=== PATIENT | female | born 1975 | race Caucasian/White ===

== ENCOUNTER 2020-05-20 11:06 | Outpatient (REF) | payer OTHER, SELFPAY ==
[2020-05-20 12:41] LABS: COVID-19 Test Negative (Negative)
== END 2020-05-20 11:07 | disposition home or self-care (01) ==
LOC: HO.LAB 11:06
PROVIDERS: Visit Provider Internal Medicine
DX: Z20.828 Contact with and (suspected) exposure to other viral communicable diseases (principal)
CPT/HCPCS: 87635

== ENCOUNTER 2020-06-05 10:26 | Outpatient (REF) | payer OTHER, SELFPAY ==
[2020-06-05 11:01] LABS: COVID-19 Test Negative (Negative)
== END 2020-06-05 10:27 | disposition home or self-care (01) ==
LOC: HO.LAB 10:26
PROVIDERS: Visit Provider Internal Medicine
DX: Z20.828 Contact with and (suspected) exposure to other viral communicable diseases (principal)
CPT/HCPCS: 87635

== ENCOUNTER 2020-11-15 12:35 | Outpatient (REF) | payer OTHER, SELFPAY ==
--- NOTE | ~2020-11-15 | MM_ITS ---
EXAMINATION: MM SCREENING DIGITAL BREAST TOMOSYNTHESIS, BILATERAL CLINICAL INFORMATION: Screening. Asymptomatic. The lifetime risk of breast cancer based on the Tyrer-Cuzick Model is 10%. COMPARISON: Mammography: 09/02/2019, 06/24/2018, 04/05/2017 TECHNIQUE: Digital breast tomosynthesis is performed in both the craniocaudal and mediolateral oblique views along with computer-aided detection (CAD). Synthesized 2D images are generated from the tomosynthesis. Additional right CC view is provided. FINDINGS: There are scattered areas of fibroglandular density (ACR BI-RADS breast composition Category b). Breast tissue composition borders on heterogeneously dense in the bilateral anterior breasts. Parenchymal pattern is similar to prior studies. No developing density. No significant changes. There are no significant masses, abnormal calcifications, or other abnormalities. MM/MM tomosynthesis screening BI IMPRESSION: No mammographic evidence of malignancy. ASSESSMENT: BI-RADS 1: Negative RECOMMENDATION: Routine annual mammography screening. This patient's information was entered into a reminder system with a target due date for their next mammogram.
== END 2020-11-15 12:36 | disposition home or self-care (01) ==
LOC: HO.MAMMO 12:35
PROVIDERS: PCP Nurse Practitioner Family; Visit Provider Nurse Practitioner Family
DX: Z12.31 Encounter for screening mammogram for malignant neoplasm of breast (principal)
CPT/HCPCS: 77063; 77067

== ENCOUNTER 2020-11-25 09:30 | Outpatient (REF) | payer OTHER, SELFPAY ==
[2020-11-25 10:25] LABS: MANUAL DIFF FLAG NO
[2020-11-25 10:55] LABS: Basophils Percent Auto 0.7 % (0-2); Eosinophils Absolute Auto 0.1 X10*3/uL (0.0-0.4); Eosinophils Percent Auto 1.1 % (0-4); Hematocrit 35.9 % (37-47); Hemoglobin 11.8 g/dl (12.0-16.0); Imm Gran Abs Auto 0.01 X10*3/uL (0.00-0.03); Imm Gran Pct Auto 0.2 % (0.0-0.4); Lymphocytes Absolute Auto 1.5 X10*3/uL (1.2-4.9); Lymphocytes Percent Auto 32.5 % (20-40); Mean Corpuscular HGB Conc 32.9 g/dl (31.0-35.0); Mean Corpuscular Volume 94.2 fL (80-98); Mean Platelet Volume 10.7 fL (9.4-12.3); Monocytes Absolute Auto 0.3 X10*3/uL (0.1-1.2); Neutrophils Absolute Auto 2.7 X10*3/uL (2.0-8.3); Neutrophils Percent Auto 58.5 % (45-73); Platelet Count 218 X10*3/uL (160-400); Red Blood Count 3.81 X10*6/uL (4.20-5.50); Red Cell Distribution Width 13.5 % (11.0-16.0); White Blood Count 4.6 X10*3/uL (4.8-10.8)
[2020-11-25 11:10] LABS: Alanine Aminotransferase 19 U/L (0-31); Albumin Level 4.3 g/dL (3.5-5.0); Alkaline Phosphatase 53 U/L (39-117); Anion Gap 15 (12-20); Aspartate Amino Transferase 29 U/L (5-31); Bilirubin Total 1.1 mg/dL (0.0-1.0); Blood Urea Nitrogen 14 mg/dL (9-16); C Reactive Protein 0.07 mg/dL (< or = 0.50); Calcium 9.2 mg/dL (8.4-10.2); Carbon Dioxide 24 mmol/L (22-29); Chloride 105 mmol/L (96-108); Cholesterol 175 mg/dL; Estimated Glomerular Filt Rate > 60; Glucose Fasting 86 mg/dL (60-99); HDL Cholesterol 92 mg/dL; LDL Cholesterol Calculated 76 mg/dl; Potassium 4.4 mmol/L (3.3-5.1); Sodium 140 mmol/L (135-145); Total Protein 6.8 g/dL (6.5-8.0); Triglycerides 35 mg/dL
[2020-11-25 11:14] LABS: Vitamin D 25-OH Total 35.8 ng/mL (>30)
[2020-11-25 11:33] LABS: Folate 17.5 ng/mL (> or = 4.0); Vitamin B12 199 pg/mL (200-900)
[2020-11-25 12:15] LABS: Erythrocyte Sedimentation Rate 2 MM/HR (0-20)
[2020-11-30 12:02] LABS: Parietal Cell Antibody <=20.0 Unit (<=20.0)
[2020-12-02 19:06] LABS: Intrinsic Factor Antibodies Negative (Negative)
== END 2020-11-25 09:31 | disposition home or self-care (01) ==
LOC: HO.10HDL 09:30
PROVIDERS: PCP Nurse Practitioner Family; Visit Provider Nurse Practitioner Family
DX: Z00.00 Encounter for general adult medical examination without abnormal findings (principal); Z78.9 Other specified health status
CPT/HCPCS: 36415; 80053; 80061; 82306; 82607; 82746; 83516; 85025; 85652; 86140; 86340

== ENCOUNTER → 2021-01-27 12:55 | Outpatient (BNVA) | payer OTHER, SELFPAY | PROVIDERS: PCP Nurse Practitioner Family; Referring Provider Nurse Practitioner Family; Visit Provider Advanced Practice Midwife ==

== ENCOUNTER → 2021-04-07 13:28 | Outpatient (BNVA) | payer OTHER, SELFPAY | PROVIDERS: PCP Nurse Practitioner Family; Visit Provider Physician Assistant ==

== ENCOUNTER 2021-04-22 10:31 | Outpatient (REF) | payer OTHER, SELFPAY ==
[2021-04-22 10:50] LABS: MANUAL DIFF FLAG NO
[2021-04-22 10:55] LABS: Basophils Percent Auto 0.4 % (0-2); Eosinophils Absolute Auto 0.1 X10*3/uL (0.0-0.4); Eosinophils Percent Auto 1.4 % (0-4); Hematocrit 36.6 % (37-47); Hemoglobin 12.3 g/dl (12.0-16.0); Imm Gran Abs Auto 0.01 X10*3/uL (0.00-0.03); Imm Gran Pct Auto 0.2 % (0.0-0.4); Immature Retic Fraction 4.8 % (3.0-15.9); Lymphocytes Absolute Auto 1.5 X10*3/uL (1.2-4.9); Mean Corpuscular HGB Conc 33.6 g/dl (31.0-35.0); Mean Corpuscular Hemoglobin 31.5 pg (27.0-33.0); Mean Corpuscular Volume 93.8 fL (80-98); Mean Platelet Volume 10.3 fL (9.4-12.3); Monocytes Absolute Auto 0.4 X10*3/uL (0.1-1.2); Monocytes Percent Auto 7.7 % (2-11); Neutrophils Percent Auto 60.3 % (45-73); Platelet Count 212 X10*3/uL (160-400); Retic HGB Equivalent 35.4 pg (30.0-35.0); Reticulocytes Absolute 0.037 X10*6/uL (0.026-0.095); White Blood Count 4.9 X10*3/uL (4.8-10.8)
[2021-04-22 11:31] LABS: Ferritin 29 ng/mL (10-250)
[2021-04-22 11:34] LABS: Iron 219 mcg/dL (30-160); Percent Iron Saturation 65 % (15-50); Total Iron Binding Capacity 339 mcg/dL (228-428); Unsaturated Iron Binding 120 ug/dL
[2021-04-22 11:41] LABS: Vitamin B12 537 pg/mL (200-900)
[2021-04-23 13:56] LABS: Transferrin 274 mg/dL (188-341)
[2021-04-25 18:51] LABS: Homocysteine 6.8 umol/L (<10.4)
[2021-04-26 00:42] LABS: Intrinsic Factor Antibodies Negative (Negative)
[2021-04-26 12:31] LABS: Methylmalonic Acid 125 nmol/L (87-318)
[2021-04-27 08:32] LABS: Parietal Cell Antibody <=20.0 Unit (<=20.0)
== END 2021-04-22 10:32 | disposition home or self-care (01) ==
LOC: HO.10HDL 10:31
PROVIDERS: Visit Provider Nurse Practitioner Family
DX: D64.9 Anemia, unspecified (principal); Z78.9 Other specified health status
CPT/HCPCS: 36415; 82607; 82728; 83090; 83516; 83540; 83921; 84466; 85025; 85045; 86340

== ENCOUNTER 2021-06-13 07:25 | Day surgery (SDC) | payer OTHER, SELFPAY ==
[2021-06-06 13:53] VITALS: BMI 22.7
--- NOTE | 2021-06-09 14:40 | P.CONAN_ITS ---
Documented by User: Fransisca Fofana NP 06/09/21 14:40 HPI - Anesthesia Eval Consult details Narrative: 46yo F for Colonoscopy PMFSH Active Problems Active Problems: All Active Problems (Updated 04/07/21 @ 15:19 by Griselda Kraus PA-C) Encounter for screening colonoscopy (Acute) Encounter for annual routine gynecological examination (Acute) Anemia (Acute) Vegan diet (Acute) Physical exam (Acute) Past Medical History Medical History (Updated 06/13/21 @ 07:39 by Guerita Santiago RN) No pertinent past medical history Family History Family History Father High cholesterol Mesothelioma CVD (cardiovascular disease) Mother High cholesterol HTN (hypertension) Macular degeneration History of heart attack Ovarian cancer CVD (cardiovascular disease) Diabetes mellitus Sister No problems noted. Brother No problems noted. Brother No problems noted. Maternal Grandmother Ovarian cancer Maternal Grandfather Cancer of prostate Paternal Grandmother Cancer Paternal Grandfather No problems noted. Paternal Uncle Cancer of pancreas Surgical History Surgical History (Updated 06/13/21 @ 07:39 by Guerita Santiago RN) History of umbilical hernia repair Hx of dilation and curettage Social History Social History Household Members: Spouse and Children Household Members Other:: and two children Alcohol intake: current Alcohol intake frequency: holidays/special occasions only Patient Tobacco Use Status: Former Tobacco user Advance Directives Information Provided: Yes (informational brochure mailed) Advance Directives on File: No Current occupational status: employed Current occupation: [employer] Patient Experience Gender identity: Female Meds Allergies Allergy/AdvReac Type Severity Reaction Status Date / Time oxycodone [From Tylox] Allergy Unknown severe Verified 06/13/21 07:39 vomiting Home Medications Medication Instructions Recorded Confirmed Last Taken Type multivitamin 1 tab PO DAILY 10/06/20 06/06/21 Unknown History Exam Exam Date and Time: June 09, 2021 1440 Height,Weight and Vital Signs: Height 5 ft 2 in Weight 56.416 kg Assessment and Plan Assessment Anesthesia Assessment: Chart Reviewed Documented by User: Gloria Chaidez MD 06/13/21 08:20 [facility] Past Medical History Medical History (Updated 06/13/21 @ 07:39 by Guerita Santiago RN) No pertinent past medical history Family History Family History Father High cholesterol Mesothelioma CVD (cardiovascular disease) Mother High cholesterol HTN (hypertension) Macular degeneration History of heart attack Ovarian cancer CVD (cardiovascular disease) Diabetes mellitus Sister No problems noted. Brother No problems noted. Brother No problems noted. Maternal Grandmother Ovarian cancer Maternal Grandfather Cancer of prostate Paternal Grandmother Cancer Paternal Grandfather No problems noted. Paternal Uncle Cancer of pancreas Family history of problems with anesthesia: No Surgical History Surgical History (Updated 06/13/21 @ 07:39 by Guerita Santiago RN) History of umbilical hernia repair Hx of dilation and curettage History of Problems with Anesthesia: No Social History Social History Household Members: Spouse and Children Household Members Other:: and two children Alcohol intake: current Alcohol intake frequency: holidays/special occasions only Patient Tobacco Use Status: Former Tobacco user Advance Directives Information Provided: Yes (informational brochure mailed) Advance Directives on File: No Current occupational status: employed Current occupation: [employer] Patient Experience Gender identity: Female Meds Allergies Allergy/AdvReac Type Severity Reaction Status Date / Time oxycodone [From Tylox] Allergy Unknown severe Verified 06/13/21 07:39 vomiting Home Medications Medication Instructions Recorded Confirmed Last Taken Type multivitamin 1 tab PO DAILY 10/06/20 06/06/21 Unknown History Exam Airway Mallampati Class: I TM Dist: >3cm Neck ROM: Full Heart: rrr Lungs: cta Assessment and Plan Assessment Anesthesia Assessment: Anesthesia Plan Discussed and Chart Reviewed Final Anesthetic Review Family History of Problems with Anesthesia: No History of Problems with Anesthesia: No NPO: Yes ASA Class: I Final Preanesthetic Review: No Changes in Pt Med Stat, Meds/Allgs Chart Reviewed and Consent Obtained/Reviewed Patient Risk: Intermediate Procedure Risk: Intermediate Anesthetic Plan Anesthetic Plan: GA Disposition: Standard PACU
[2021-06-13 07:44] VITALS: BP 113/63; PULSE 74; RESP 16; TEMP 37.4; O2SAT 100
[2021-06-13 07:44] LABS: UPreg QC Valid YES; Urine Pregnancy NEGATIVE (NEGATIVE)
--- NOTE | 2021-06-13 07:56 | MHC.SHP ---
Pre-Procedural Eval Section A Date of Service: 06/13/21 The patient is an INPATIENT: No The History & Physical has been completed within 30 days and I have reviewed it.: No Section B Chief Complaint: screening Details of Present Illness: Colon Cancer screening Relevant Family History (Specify if Yes): Yes Relevant Social History: Tobacco Use (Former smoker) Present Medications: see Short Stay Collaborative assessment Medical History: Significant History (anemia) History of Previous Operations: Relevant previous surgery/procedure and date(s) (History of umbilical hernia repair) Allergies: Allergies Allergy/AdvReac Type Severity Reaction Status Date / Time oxycodone [From Tylox] Allergy Unknown severe Verified 06/13/21 07:39 vomiting Review of Systems Sugical H&P ROS: Negative: Constitution, Cardiovascular, Respiratory and Gastrointestinal Exam Surgical H&P Exam: Normal: Heart, Normal: Lungs, Normal: Extremities and Normal: Abdomen Plan Diagnosis/Plan: Unchanged I have reviewed the history and physical and performed a pertinent physical examination on my patient. No changes have occurred unless specified.
--- NOTE | 2021-06-13 07:59 | P.OP_ITS ---
Operative Note Operative Note Date of Service: 06/13/21 Narrative: Pre-op diagnosis:?Colon Cancer screening, family history of colon polyps (Dad in his 50's) Post-op diagnosis:?other (Diverticulosis, hemorrhoids) Procedure:? COLONOSCOPY TILL CECUM Consent: Indications for the procedure and potential complications of bleeding, perforation, reaction to medications and missed diagnosis were discussed with the patient and informed consent was obtained. Instrument: Olympus PCF H 190 L variable stiffness pediatric colonoscope Monitoring: Vital signs and clinical assessment, intermittent blood pressure monitoring, continuous EKG monitoring, Pulse oximetry and Carbon Dioxide monitoring were done throughout the procedure. Colon withdrawl time was 15 minutes. Procedure: The patient was placed in the left lateral decubitis position and pre-procedure medications were administered. After a digital rectal examination of the ano-rectum, the video colonoscope was inserted into the rectum and advanced through the colon to the cecum. The colonoscope was slowly withdrawn in a retrograde panoramic fashion and the colon mucosa was carefully examined including a retroflexed view of the rectum. Findings and interventions are described below. Procedure Difficulty: Without difficulty Findings: Terminal Ileum: Not evaluated Cecum:? Normal Ascending Colon:? Normal Transverse Colon:? Normal Descending Colon:? Normal Sigmoid Colon:? Moderate diverticulosis Rectum:? Normal Ano-rectum:? Moderate internal hemorrhoids and perianal skin tags Colon preparation: Excellent ? Impression and Post Procedure Diagnosis: Colonoscopy Findings: No polyps were detcted Moderate diverticulosis seen in the sigmoid colon Moderate hemorrhoids on retroflexed exam. Plan: Repeat Colonoscopy in 5 years due to family hx of colon polyps. Above findings were reviewed with the patient and diverticulosis handout was given in the discharge area Surgeon:?Andrew Murrell MD Anesthesia:?MAC (Sarah Patiño CRNA) Was an Signs And Displays Sales Representative used for this Procedure?:?No Signs And Displays Sales Representative:?Glenn Welch Estimated blood loss (mL):?0 Pathology:?none sent Condition:?stable Disposition:?PACU
[2021-06-13] MEDS: Lactated Ringers 1,000 ML 100 ML IVCONT (08:02)
[2021-06-13 09:10] VITALS: BP 119/64; PULSE 60; RESP 16; TEMP 36.7; O2SAT 100
[2021-06-13 09:25] VITALS: BP 103/57; PULSE 74; RESP 18; TEMP 36.7; O2SAT 100
== END 2021-06-13 09:59 | disposition home or self-care (01) ==
PROVIDERS: Nurse Practitioner; PCP Nurse Practitioner Family; Visit Provider Internal Medicine Gastroenterology
PROC: 0DJD8ZZ Inspection of Lower Intestinal Tract, Via Natural or Artificial Opening Endoscopic (ICD-10-PCS; CPT 45378; principal; 2021-06-13 08:30)
DX: Z12.11 Encounter for screening for malignant neoplasm of colon (principal); Z83.71 Family history of colonic polyps; K57.30 Diverticulosis of large intestine without perforation or abscess without bleeding; K64.8 Other hemorrhoids; K64.4 Residual hemorrhoidal skin tags; Z88.8 Allergy status to other drugs, medicaments and biological substances; Z87.891 Personal history of nicotine dependence
CPT/HCPCS: 45378; 81025

== ENCOUNTER 2021-08-26 13:00 | Outpatient (RCR) | payer OTHER, SELFPAY ==
--- NOTE | 2021-08-22 16:54 | MHC.PT.EP ---
[facility] [place] Office [place] Office [place] Office [address] Sammy Paez [address] [phone] F: [phone] F: [phone] F: [phone] F: [phone] Physical Therapy Plan of Care Date of Evaluation: Date of Surgery: Diagnosis: R THORACIC AND CERVICAL PARASPINAL SPASMS Assessment: Pt IS 46 YO RHD F REFERRED TO PT THROUGH (Elvira SIDDIQUI) WITH R THORACIC AND CERV PARASPINAL MM SPASMS. 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 REPORTS NO SPECIFIC INJURY OR TRAUMA BUT THAT INCIDENTS OF UPPER BACK PAIN ARE BECOMING CHRONIC. PAIN IN UPPER BACK/SCAPULA AREA CAN LEAD TO MIGRAINES AND LIMITED CERV ROM. THIS BOUT STARTED AROUND 08/06/21 WITHOUT PROVOCATION. HAD TO TAKE A FEW DAYS OFF WORK. SAW WC AND MEDS PRESCRIBED WITH RELIEF. HAS HAD PT IN PAST FOR LB BUT NEVER FOR NECK/UPPER BACK. PRESENTS WITH UPPER BODY WEAKNESS AND TTP THORACIC PARASPINALS,SCAP MMS AND UTS. SHOULD BENEFIT FROM PT TO ADDRESS THESE ISSUES Frequency and Duration: The patient will be seen 2X/WK X 4 WKS Short Term Goals: 1. INCREASED POSTURE AWARENESS AND AWARENESS JOB SITE SET UP 2. 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 DECREASED UPPER BACK PAIN AT LEAST 50% WITH ADLS 2. R SHLDER ABD STRENGTH AT LEAST 4+/5 3. IMPROVED NPDI (20/50 AT SOC) Treatment Plan: Modalities to reduce pain, spasms and effusion. Manual therapy to restore motion and function. Therapeutic exercise to improve strength and flexibility. Neuromuscular re-education for posture and balance. Therapeutic activities to return to functional activities of daily living. Electronically signed by: LYNDA FARLEY PT Please sign and return to therapist. Thank you for your referral.
--- NOTE | 2021-09-30 13:48 | MHC.PT.DC ---
[facility] [place] Office [place] Office [place] Office [address] [place] [address] Dr Sammy Paez [address] [phone] F: [phone] F: [phone] F: [phone] F: [phone] Physical Therapy Discharge Report Diagnosis: R THORACIC AND CERVICAL PARASPINAL SPASMS Date of Surgery: Date of Evaluation: 08/22/21 Date of Discharge: 09/30/21 Treatments to Date: 2 Cancellations to Date: No Shows to Date: Discharge Status: Patient Elected to Stop Discharge Summary: Pt SEEN FOR INIT EVAL AND [address] WORK AND INST IN HOME PROGRAM. Pt THEN HAD TO CANCEL HER LAST 2 SCHEDULED APPTS (COVID). WHEN SPOKE WITH Pt RE CONT/DC Pt SHE FELT SHE WAS READY FOR DC WITH ABILITY TO CONTINUE WITH HOME PROGRAM Electronically signed by: LYNDA FARLEY PT Please sign and return to therapist. Thank you for your referral.
== END 2021-09-30 13:49 | disposition home or self-care (01) ==
LOC: HO.PT 13:00
PROVIDERS: Visit Provider Physician Assistant Medical
DX: M62.830 Muscle spasm of back (principal); M62.838 Other muscle spasm
CPT/HCPCS: 97110; 97140; 97161; 97535

== ENCOUNTER 2021-10-17 08:36 | Outpatient (REF) | payer OTHER, SELFPAY ==
[2021-10-17 10:40] LABS: MANUAL DIFF FLAG NO
[2021-10-17 10:45] LABS: Basophils Percent Auto 0.7 % (0-2); Eosinophils Absolute Auto 0.1 X10*3/uL (0.0-0.4); Eosinophils Percent Auto 2.2 % (0-4); Hematocrit 33.9 % (37.0-47.0); Hemoglobin 11.4 g/dl (12.0-16.0); Imm Gran Abs Auto 0.01 X10*3/uL (0.00-0.03); Imm Gran Pct Auto 0.2 % (0.0-0.4); Lymphocytes Absolute Auto 1.3 X10*3/uL (1.2-4.9); Lymphocytes Percent Auto 32.3 % (20-40); Mean Corpuscular HGB Conc 33.6 g/dl (31.0-35.0); Mean Corpuscular Hemoglobin 31.3 pg (27.0-33.0); Mean Corpuscular Volume 93.1 fL (80.0-98.0); Monocytes Absolute Auto 0.3 X10*3/uL (0.1-1.2); Monocytes Percent Auto 7.4 % (2-11); Neutrophils Absolute Auto 2.3 x10*3/uL (2.0-8.3); Neutrophils Percent Auto 57.2 % (45-73); Platelet Count 219 X10*3/uL (160-400); Red Blood Count 3.64 X10*6/uL (4.20-5.50); Red Cell Distribution Width 13.4 % (11.0-16.0); White Blood Count 4.1 X10*3/uL (4.8-10.8)
[2021-10-17 11:05] LABS: Alanine Aminotransferase 14 U/L (0-31); Albumin Level 4.1 g/dL (3.5-5.0); Alkaline Phosphatase 47 U/L (39-117); Anion Gap 12 (12-20); Aspartate Amino Transferase 18 U/L (5-31); Bilirubin Total 1.1 mg/dL (0.0-1.0); Blood Urea Nitrogen 19 mg/dL (9-16); C Reactive Protein 0.06 mg/dL (< or = 0.50); Calcium 8.7 mg/dL (8.4-10.2); Carbon Dioxide 25 mmol/L (22-29); Chloride 107 mmol/L (96-108); Cholesterol 164 mg/dL; Estimated Glomerular Filt Rate > 60; Glucose Fasting 114 mg/dL (60-99); HDL Cholesterol 73 mg/dL; LDL Cholesterol Calculated 83 mg/dl; Potassium 3.7 mmol/L (3.3-5.1); Sodium 140 mmol/L (135-145); Total Protein 6.4 g/dL (6.5-8.0); Triglycerides 43 mg/dL
[2021-10-17 11:26] LABS: Ferritin 13 ng/mL (10-250); TSH reflex Free T4 1.01 uIU/mL (0.32-4.0); Vitamin D 25-OH Total 31.4 ng/mL (>30)
[2021-10-17 11:41] LABS: Folate > 20.0 ng/mL (> or = 4.0); Vitamin B12 790 pg/mL (200-900)
[2021-10-17 11:43] LABS: Erythrocyte Sedimentation Rate 4 MM/HR (0-20)
[2021-10-18 04:14] LABS: HBS Num1 3.72 mIU/mL (0-7.99); HBc Num1 0.11 S/CO (0.00-0.79); Hepatitis B Core Antibody Nonreactive (Nonreactive); ~HepC Num1 0.08 S/CO (0.00-0.79); ~Hepatitis B Surface Antibody NONREACTIVE (Nonreactive); ~Hepatitis C Antibody Nonreactive (Nonreactive)
[2021-10-18 04:18] LABS: HBsAGNum1 0.19 S/CO (0.00-0.99); Hepatitis B Surface Antigen Negative (Negative)
[2021-10-18 18:56] LABS: Mumps Virus IgG Antibody >300.00 AU/mL; Rubeola IgG (Measles) >300.00 AU/mL
[2021-10-19 04:15] LABS: Hepatitis A Antibody IgM 0.18 Index (0-0.79); ~Hepatitis A Antibody IgM Nonreactive (Nonreactive)
[2021-10-19 18:51] LABS: TS Negative Control Passed; TS Panel A 1; TS Panel B 0; TS Positive Control Passed; TSpotTB Negative (Negative)
[2021-10-20 21:56] LABS: Intrinsic Factor Antibodies Negative (Negative)
[2021-10-24 14:36] LABS: Parietal Cell Antibody <=20.0 Unit (<=20.0)
== END 2021-10-17 08:37 | disposition home or self-care (01) ==
LOC: HO.10HDL 08:36
PROVIDERS: Visit Provider Nurse Practitioner Family
DX: Z00.00 Encounter for general adult medical examination without abnormal findings (principal); D64.9 Anemia, unspecified; Z78.9 Other specified health status; Z11.1 Encounter for screening for respiratory tuberculosis; Z28.3 Underimmunization status
CPT/HCPCS: 36415; 80053; 80061; 82306; 82607; 82728; 82746; 83516; 84443; 85025; 85652; 86140; 86340; 86481; 86704; 86706; 86709; 86735; 86762; 86765; 86787; 86803; 87340

== ENCOUNTER 2021-11-13 | Outpatient (REF) | payer OTHER, SELFPAY ==
[2021-11-16 08:35] LABS: FIT Int Ctl YES; FIT1 NEGATIVE (NEGATIVE); FIT2 NEGATIVE (NEGATIVE)
== END 2021-11-13 00:01 | disposition home or self-care (01) ==
LOC: HO.LNP
PROVIDERS: Visit Provider Nurse Practitioner Family
DX: D64.9 Anemia, unspecified (principal)
CPT/HCPCS: 82274

== ENCOUNTER 2021-11-15 15:33 | Outpatient (REF) | payer OTHER, SELFPAY | END 2021-11-15 15:34 | disposition home or self-care (01) | LOC: HO.LNP 15:33 | PROVIDERS: Visit Provider Nurse Practitioner Family | DX: Z13.89 Encounter for screening for other disorder (principal) ==

== ENCOUNTER 2022-01-19 14:50 | Outpatient (REF) | payer BC, SELFPAY ==
--- NOTE | ~2022-01-19 | MM_ITS ---
EXAMINATION: MM SCREENING DIGITAL BREAST TOMOSYNTHESIS, BILATERAL CLINICAL INFORMATION: Screening. Asymptomatic. The lifetime risk of breast cancer based on the Tyrer-Cuzick Model is 10%. COMPARISON: Mammography: 11/15/2020, 09/02/2019, 06/24/2018, 04/05/2017 TECHNIQUE: Digital breast tomosynthesis is performed in both the craniocaudal and mediolateral oblique views along with computer-aided detection (CAD). Synthesized 2D images are generated from the tomosynthesis. FINDINGS: There are scattered areas of fibroglandular density (ACR BI-RADS breast composition Category b). Parenchymal pattern is similar to prior studies. There are scattered bilateral stable parenchymal asymmetries without developing density or interval significant mass or architectural abnormality. Breast tissue composition borders on heterogeneously dense. No abnormal calcifications. The axilla are unremarkable. MM/MM tomosynthesis screening BI IMPRESSION: No significant changes from prior studies. ASSESSMENT: BI-RADS 2: Benign RECOMMENDATION: Routine annual mammography screening. This patient's information was entered into a reminder system with a target due date for their next mammogram.
== END 2022-01-19 14:51 | disposition home or self-care (01) ==
LOC: HO.MAMMO 14:50
PROVIDERS: Visit Provider Nurse Practitioner Family
DX: Z12.31 Encounter for screening mammogram for malignant neoplasm of breast (principal)
CPT/HCPCS: 77063; 77067

== ENCOUNTER → 2022-05-22 09:59 | Outpatient (RCR) | payer OTHER, SELFPAY ==
[2020-06-14 09:22] LABS: COVID-19 Test Negative (Negative)
== END | disposition home or self-care (01) ==
LOC: HO.EMPCOV 06-14 08:56
PROVIDERS: Visit Provider Internal Medicine
DX: Z20.828 Contact with and (suspected) exposure to other viral communicable diseases (principal)
CPT/HCPCS: 87635; C9803

== ENCOUNTER 2023-02-12 10:20 | Outpatient (REF) | payer BC, SELFPAY ==
--- NOTE | ~2023-02-12 | MM_ITS ---
EXAMINATION: MM SCREENING DIGITAL BREAST TOMOSYNTHESIS, BILATERAL CLINICAL INFORMATION: Screening. Asymptomatic. The lifetime risk of breast cancer based on the Tyrer-Cuzick Model is 8.7%. COMPARISON: Mammography: This study is compared with prior exams dating back to 2018. TECHNIQUE: Digital breast tomosynthesis is performed in both the craniocaudal and mediolateral oblique views along with computer-aided detection (CAD). Synthesized 2D images are generated from the tomosynthesis. FINDINGS: There are scattered areas of fibroglandular density (ACR BI-RADS breast composition Category b). There are no significant masses, abnormal calcifications, or other abnormalities. MM/MM tomosynthesis screening BI IMPRESSION: No mammographic evidence of malignancy. ASSESSMENT: BI-RADS BI-RADS 1 - Negative RECOMMENDATION: Routine annual mammography screening. 1 year F/U This examination should not preclude the clinical evaluation of a suspicious palpable abnormality. This patient's information was entered into a reminder system with a target due date for their next mammogram.
== END 2023-02-12 10:21 | disposition home or self-care (01) ==
LOC: HO.MAMMO 10:20
PROVIDERS: Visit Provider Nurse Practitioner Family
DX: Z12.31 Encounter for screening mammogram for malignant neoplasm of breast (principal)
CPT/HCPCS: 77063; 77067

== ENCOUNTER → 2023-02-12 10:30 | Outpatient (BNV) | payer BC, SELFPAY | PROVIDERS: Visit Provider Radiology Diagnostic Radiology | DX: Z12.31 Encounter for screening mammogram for malignant neoplasm of breast (principal) | CPT/HCPCS: 77063; 77067 ==

== ENCOUNTER 2023-09-05 14:29 | Outpatient (AMB) | payer BC, SELFPAY ==
[2023-09-05 15:05] VITALS: BP 110/76; PULSE 56; O2SAT 100; BMI 24.4
--- NOTE | 2023-09-05 15:05 | MHC.PC.OV ---
Vital Signs 09/05/23 15:05 Height 5 ft 2 in Weight 133 lb 8 oz BMI 24.4 BP 110/76 Blood Pressure Location Lt brachial Position Sitting Pulse 56 Pulse Source Pulse Oximeter Pulse Oximetry (%) 100 Oxygen Delivery Method Room Air Intake Visit Reasons: physical exam Intake Note: Pt is here for her Annual PE Last Pap 4 months ago pt had her Mammo last year Is last menstrual period known: Yes Last menstrual period: 08/07/23 Allergies oxycodone [From Tylox] Allergy (Unknown, Verified 09/05/23 15:08) severe vomiting Medication List - Last Reconciled 09/05/23 by NOHELIA Gonzalez multivitamin 1 tab PO DAILY Tobacco use date assessed: 09/05/23 Dental Screening Dental Screen Date: 09/05/23 Did you have a dental visit in the last 12 months?: Yes Did you have a dental problem in the last 6 months where you did not have access to dental care?: No Was dental information given to patient?: Patient has dentist HPI physical exam HPI Details Pt is here for a PE. Will order labs. Colon screen is up to date. Mammo is up to date. 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 Pt reports a red skin lesion to her upper chest that she has had for 3 weeks. Will refer to derm. [facility] Medical History No pertinent past medical history Surgical History Hx of dilation and curettage History of umbilical hernia repair Family History Father High cholesterol Mesothelioma CVD (cardiovascular disease) Mother High cholesterol HTN (hypertension) Macular degeneration History of heart attack CVD (cardiovascular disease) Diabetes mellitus Sister No problems noted. Brother No problems noted. Brother No problems noted. Maternal Grandmother Ovarian cancer Maternal Grandfather Cancer of prostate Paternal Grandmother Cancer Paternal Grandfather No problems noted. Paternal Uncle Cancer of pancreas Social History Household Members: Spouse and Children Household Members Other:: and two children Housing: House Alcohol intake: current Alcohol intake frequency: a few times a week Patient Tobacco Use Status: Never used Tobacco e-Cigarette/Vaping Use: Never Used Second Hand Smoke Exposure: No Current occupational status: employed Current occupation: [employer] Current occupational exposures/hazards: No Sexual orientation: Straight/Heterosexual Gender identity: Female Cognitive needs: No Hearing needs: No Vision needs: No Female Reproductive History Menstrual Age of Menarche: 12 Date of last menstrual period: 08/07/23 Questionnaire PHQ-9 Over the last 2 weeks, how often have you been bothered by any of the following problems? 1. Little interest or pleasure in doing things: not at all 2. Feeling down, depressed, or hopeless: not at all 3. Trouble falling or staying asleep, or sleeping too much: not at all 4. Feeling tired or having little energy: not at all 5. Poor appetite or overeating: not at all 6. Feeling bad about yourself - or that you are a failure or have let yourself or your family down: not at all 7. Trouble concentrating on things, such as reading the newspaper or watching television: not at all 8. Moving or speaking so slowly that other people could have noticed. Or the opposite - being so fidgety or restless that you have been moving around a lot more than usual: not at all 9. Thoughts that you would be better off or of hurting yourself in some way: not at all Total score: 0 Depression Screening Interpretation: Negative Depression Screening Done: Yes 18467 - PHQ-9 Billing: Yes Source: Developed by Drs. Yeyo Andrade, Emily Arnett, Severo Castro and colleagues, with an educational paul from [employer]. Thrive Questionnaire Date Thrive assessed: 09/05/23 I am a: Patient What is your living situation today?: I have a steady place to live Within the past 12 months, did the food you bought not last and you didn't have the money to get more?: Never true Within the past 12 months, did you worry whether your food would run out before you got money to buy more?: Never true Do you have trouble paying for medicines?: No Do you have trouble getting transportation to medical appointments?: No Do you have trouble paying your heating and electricity bill?: No Do you have trouble taking care of your child, family member or friend?: No Do you have trouble with day-to-day activities such as bathing, preparing meals, shopping, managing finances, etc.?: No Are you currently unemployed and looking for a job?: No Are you interested in more education?: No Currently or been in a relationship where the following occur: no concerns reported THRIVE Score: 0 AUDIT C Alcohol Use Questionnaire (AUDIT-C) 1. How often do you have a drink containing alcohol?: 2-4 times a month 2. How many drinks containing alcohol do you have on a typical day when you are drinking?: 1 or 2 3. How often do you have six or more drinks on one occasion?: Never Total Score: 2 Score Reviewed/Action Taken: Yes JAC-7 AMB Questionnaire JAC-7 Date JAC - 7 assessed: 09/05/23 Feeling nervous, anxious, or on edge: 0 = Not at all Not being able to stop or control worryin = Not at all Worrying too much about different things: 0 = Not at all Trouble relaxin = Not at all Being so restless that it is hard to sit still: 0 = Not at all Becoming easily annoyed or irritable: 0 = Not at all Feeling afraid as if something awful might happen: 0 = Not at all Total JAC-7 score (0-4 normal; 5-9 mild; 10-14 moderate; 15-21 severe): 0 Source: Developed by Drs. Yeyo Andrade, Emily Arnett, Severo Castro and colleagues, with an educational paul from [employer]. JAC-7 Assessment Billing JAC-7 Assessment Tool: JAC-7 Assessment 05367 Review of Systems Const Denies chills and Denies fever(s) Eyes Denies blurry vision ENT Denies vertigo, Denies dizziness and Denies sore throat Card Denies chest pain at rest, Denies chest pain with activity, Denies diaphoresis, Denies dyspnea and Denies dyspnea on exertion Resp Denies cough, Denies dyspnea, Denies dyspnea on exertion and Denies wheezing GI Denies abdominal pain, Denies melena, Denies hematochezia, Denies constipation, Denies diarrhea and Denies loose stools Denies hematuria Musc Denies numbness and Denies tingling Skin/Breast Denies lesions Neuro Denies vertigo, Denies dizziness, Denies numbness and Denies tingling Psych Denies anxiety, Denies depression, Denies homicidal ideation, Denies suicidal ideation and Denies other (substance abuse) Aller/Immun Denies wheezing Physical exam (Primary Care) Vital Signs: Last Vital Signs Pulse 56 09/05/23 15:05 BP 110/76 09/05/23 15:05 Pulse Ox 100 09/05/23 15:05 Oxygen Delivery Method Room Air 09/05/23 15:05 BMI result Body Mass Index 24.4 Tobacco/Smoking Status: Tobacco use Status Tobacco use date assessed 09/05/23 09/05/23 15:10 Patient Tobacco Use Status Never used Tobacco 09/05/23 15:10 e-Cigarette/Vaping Use Never Used 09/05/23 15:10 PHQ-9: PHQ-9 Score PHQ-9: Total score 0 09/05/23 15:34 Depression Screening Interpretation: Negative Thrive Assessment: Date of Thrive Assessment Date Thrive assessed 09/05/23 09/05/23 15:14 Currently or been in a relationship where the following occur: no concerns reported Const General: cooperative Nutritional Appearance: well nourished Orientation/consciousness: patient oriented x3 HENMT Head: Yes normal to inspection, Yes normocephalic and Yes atraumatic Ears: TM's normal bilaterally Eyes General: appearance normal, both eyes and all related structures Alignment and Position: alignment normal and position normal Neck Neck: Yes normal visual inspection and Yes no lymphadenopathy Thyroid: Thyroid normal Chest Chest palpation & inspection: normal inspection of the chest Resp Effort & Inspection: normal respiratory effort Auscultation: clear to auscultation bilaterally Cardio Rate: regular rate Rhythm: regular rhythm Heart sounds: S1 normal heart sound present, S2 normal heart sound present and no murmurs GI Palpation (GI): Soft to palpation and nontender Auscultation: normal bowel sounds Skin Other: red, slightly raises, shiny lesion to upper chest, no tenderness with touch, no surrounding lesions Rashes: no rashes Neuro General: patient oriented x3, moves all extremities, no focal motor deficits and deep tendon reflexes 2+ bilaterally Romberg Test: Negative Psych Appearance: grossly normal Mental Status: mental status grossly normal Speech and movement: Normal speech and movement present Affect: normal affect Attitude: cooperative Thought process: Normal thought process present Thought content: Normal thought content present Insight: Good insight present (Psych) Judgement: Good judgement present (Psych) Assessment and Plan Assessment & Plan (1) Physical exam: Code(s): Z00.00 - Encounter for general adult medical examination without abnormal findings Plan: Labs ordered (2) Vitamin D deficiency: Code(s): E55.9 - Vitamin D deficiency, unspecified Plan: Labs ordered (3) Skin lesion: Code(s): L98.9 - Disorder of the skin and subcutaneous tissue, unspecified Plan: Referred to derm Plan The patient agreed to the use of a medical device sales representative for this encounter. Scribed for JIE Moore-BC by Dotty Louis medical device sales representative, on 09/05/2023 at 15:20 EST. Orders: Orders Comprehensive [place]. Panel Fast Today Z00.00 - Encounter for general adult medical examination without abnormal findings UA CC w/rflx Micro + Cult Today Z00.00 - Encounter for general adult medical examination without abnormal findings Vitamin D 25-OH Total Today E55.9 - Vitamin D deficiency, unspecified Complete Blood Count Auto Diff Today Z00.00 - Encounter for general adult medical examination without abnormal findings TSH reflex Free T4 Today Z00.00 - Encounter for general adult medical examination without abnormal findings Lipid Panel Today Z00.00 - Encounter for general adult medical examination without abnormal findings Referrals Dermatology Referral L98.9 - Disorder of the skin and subcutaneous tissue, unspecified Coding Level of Care Code Est Pt Prev Care 40-64y(63359) Diagnoses Physical exam Z00.00 Vitamin D deficiency E55.9 Skin lesion L98.9 Additional Codes JAC-7 Assessment Billing - JAC-7 Assessment Tool: JAC-7 Assessment [id number] ([id number])
== END 2023-09-05 15:36 | disposition home or self-care (01) ==
PROVIDERS: Visit Provider Nurse Practitioner Family
DX: Z00.00 Encounter for general adult medical examination without abnormal findings (principal); E55.9 Vitamin D deficiency, unspecified; L98.9 Disorder of the skin and subcutaneous tissue, unspecified
CPT/HCPCS: 99396

== ENCOUNTER 2023-10-18 08:43 | Outpatient (REF) | payer BC, SELFPAY ==
[2023-10-18 10:56] LABS: MANUAL DIFF FLAG NO
[2023-10-18 11:01] LABS: Appearance Urine Turbid; Basophils Percent Auto 0.5 % (0-2); Color Urine Yellow; Eosinophils Absolute Auto 0.1 X10*3/uL (0.0-0.4); Eosinophils Percent Auto 1.6 % (0-4); Glucose Urine UA Negative (Negative); Hematocrit 34.9 % (37.0-47.0); Hemoglobin 11.8 g/dl (12.0-16.0); Imm Gran Abs Auto 0.02 X10*3/uL (0.00-0.03); Imm Gran Pct Auto 0.4 % (0.0-0.4); Leukocyte Esterase Urine Negative (Negative); Lymphocytes Percent Auto 34.9 % (20-40); Mean Corpuscular HGB Conc 33.8 g/dl (31.0-35.0); Mean Corpuscular Hemoglobin 30.6 pg (27.0-33.0); Mean Corpuscular Volume 90.6 fL (80.0-98.0); Mean Platelet Volume 10.1 fL (9.4-12.3); Monocytes Absolute Auto 0.4 X10*3/uL (0.1-1.2); Monocytes Percent Auto 6.8 % (2-11); Neutrophils Absolute Auto 3.2 x10*3/uL (2.0-8.3); Neutrophils Percent Auto 55.8 % (45-73); Nitrite Urine Negative (Negative); PH 5.5 (5.0-9.0); Platelet Count 217 X10*3/uL (160-400); Red Blood Count 3.85 X10*6/uL (4.20-5.50); Red Cell Distribution Width 13.1 % (11.0-16.0); Specific Gravity - Urine 1.025 (1.005-1.025); Urine Blood Negative (Negative); Urine Ketones Negative (Negative); Urine Protein Negative (Neg-Trace); White Blood Count 5.7 X10*3/uL (4.8-10.8)
[2023-10-18 11:33] LABS: Alanine Aminotransferase 12 U/L (0-31); Albumin Level 4.5 g/dL (3.5-5.0); Alkaline Phosphatase 44 U/L (39-117); Anion Gap 10 (12-20); Aspartate Amino Transferase 15 U/L (5-31); Blood Urea Nitrogen 17 mg/dL (9-16); Calcium 9.2 mg/dL (8.4-10.2); Carbon Dioxide 27 mmol/L (22-29); Chloride 108 mmol/L (96-108); Cholesterol 158 mg/dL (<200); Estimated Glomerular Filt Rate > 60; Glucose Fasting 88 mg/dL (60-99); HDL Cholesterol 77 mg/dL (>40); LDL Cholesterol Calculated 71 mg/dL (<100); Potassium 3.6 mmol/L (3.3-5.1); Sodium 141 mmol/L (135-145); TSH reflex Free T4 1.54 uIU/mL (0.32-4.0); Total Protein 7.1 g/dL (6.5-8.0); Triglycerides 53 mg/dL (<150); Vitamin D 25-OH Total 42.5 ng/mL (>30)
== END 2023-10-18 08:44 | disposition home or self-care (01) ==
LOC: HO.10HDL 08:43
PROVIDERS: Visit Provider Nurse Practitioner Family
DX: Z00.00 Encounter for general adult medical examination without abnormal findings (principal); Z13.6 Encounter for screening for cardiovascular disorders; E55.9 Vitamin D deficiency, unspecified
CPT/HCPCS: 36415; 80053; 80061; 81003; 82306; 84443; 85025

== ENCOUNTER 2024-02-18 10:45 | Outpatient (REF) | payer BC, SELFPAY | END 2024-02-18 10:46 | disposition home or self-care (01) | LOC: HO.MAMMO 10:45 | PROVIDERS: PCP Nurse Practitioner Family; Visit Provider Nurse Practitioner Family | DX: Z12.31 Encounter for screening mammogram for malignant neoplasm of breast (principal) | CPT/HCPCS: 77063; 77067 ==

== ENCOUNTER → 2024-02-18 10:45 | Outpatient (BNV) | payer BC, SELFPAY | PROVIDERS: PCP Nurse Practitioner Family; Visit Provider Radiology Diagnostic Radiology | DX: Z12.31 Encounter for screening mammogram for malignant neoplasm of breast (principal) | CPT/HCPCS: 77063; 77067 ==

== ENCOUNTER 2024-02-27 07:00 | Outpatient (AMB) | payer BC, SELFPAY ==
--- NOTE | 2024-02-27 07:41 | A.OFFPC_ITS ---
Intake Visit Reasons: request for referral Allergies oxycodone [From Tylox] Allergy (Unknown, Verified 09/05/23 15:08) severe vomiting Medication List - Last Reconciled 02/27/24 by NOHELIA Gonzalez multivitamin 1 tab PO DAILY Tobacco use date assessed: 09/05/23 Dental Screening Dental Screen Date: 09/05/23 HPI request for referral HPI Details Pt c/o bilat hip pain. She also reports pain to her lower back and SI joints region. Pt reports feeling like there is glass in these areas. She does report popping and clicking to her hips, worse on the right. Pt denies any recent injuries to these areas. The pains were more spontaneous, and noted with any movement. Will order XRs/labs. [facility] Medical History No pertinent past medical history Surgical History Hx of dilation and curettage History of umbilical hernia repair Family History Father High cholesterol Mesothelioma CVD (cardiovascular disease) Mother High cholesterol HTN (hypertension) Macular degeneration History of heart attack CVD (cardiovascular disease) Diabetes mellitus Sister No problems noted. Brother No problems noted. Brother No problems noted. Maternal Grandmother Ovarian cancer Maternal Grandfather Cancer of prostate Paternal Grandmother Cancer Paternal Grandfather No problems noted. Paternal Uncle Cancer of pancreas Social History Household Members: Spouse and Children Household Members Other:: and two children Housing: House Alcohol intake: current Alcohol intake frequency: a few times a week Patient Tobacco Use Status: Never used Tobacco e-Cigarette/Vaping Use: Never Used Second Hand Smoke Exposure: No Current occupational status: employed Current occupation: [employer] Current occupational exposures/hazards: No Sexual orientation: Straight/Heterosexual Gender identity: Female Cognitive needs: No Hearing needs: No Vision needs: No Female Reproductive History Menstrual Age of Menarche: 12 Questionnaire Thrive Questionnaire Date Thrive assessed: 09/05/23 JAC-7 AMB Questionnaire JAC-7 Date JAC - 7 assessed: 09/05/23 Source: Developed by Drs. Yeyo Andrade, Emily Arnett, Severo Castro and colleagues, with an educational paul from [employer]. Review of Systems Const Reports as per HPI Physical exam (Primary Care) Tobacco/Smoking Status: Tobacco use Status Tobacco use date assessed 09/05/23 02/27/24 07:46 Patient Tobacco Use Status Never used Tobacco 02/27/24 07:46 e-Cigarette/Vaping Use Never Used 02/27/24 07:46 Thrive Assessment: Date of Thrive Assessment Date Thrive assessed 09/05/23 02/27/24 07:46 Const General: cooperative Orientation/consciousness: patient oriented x3 Neuro General: patient oriented x3 Psych Appearance: grossly normal Mental Status: mental status grossly normal Speech and movement: Clear speech present Affect: normal affect Attitude: cooperative Thought process: Normal thought process present Thought content: Normal thought content present Insight: Good insight present (Psych) Judgement: Good judgement present (Psych) Telehealth Telehealth Telehealth Platform: [employer] Location of provider rendering services: practice address Location of patient: address on file Patient Identification confirmed using: Name, : Yes Telehealth method: video Patient verbally consented to treatment: Yes Patient verbally consented to billing insurance company: Yes Patient informed of any privacy concerns related to visit: Yes Minutes spent on Phone/Video with Pt.: 10 Assessment and Plan Assessment & Plan (1) Hip pain: Code(s): M25.559 - Pain in unspecified hip Plan: XRs ordered (2) SI (sacroiliac) joint dysfunction: Code(s): M53.3 - Sacrococcygeal disorders, not elsewhere classified Plan: XRs ordered (3) Lower back pain: Code(s): M54.50 - Low back pain, unspecified Plan: XRs ordered Plan The patient agreed to the use of a biomedical analytical scientist for this encounter. Scribed for NOHELIA Moore by Dotty Louis biomedical analytical scientist, on 02/27/2024 at 07:45 EST. Orders: Orders XR sacroiliac joint 1-2V Today M53.3 - Sacrococcygeal disorders, not elsewhere classified ORDY Reflex Titer and Pattern Today M25.559 - Pain in unspecified hip, M53.3 - Sacrococcygeal disorders, not elsewhere classified, M54.50 - Low back pain, unspecified Rheumatoid Factor Today M25.559 - Pain in unspecified hip, M53.3 - Sacrococcygeal disorders, not elsewhere classified, M54.50 - Low back pain, unspecified Tick-borne Disease Molecular Today M25.559 - Pain in unspecified hip, M53.3 - Sacrococcygeal disorders, not elsewhere classified, M54.50 - Low back pain, unspecified Cyclic Citrullinated Peptide Today M25.559 - Pain in unspecified hip, M53.3 - Sacrococcygeal disorders, not elsewhere classified, M54.50 - Low back pain, unspecified XR hips ZARINA min 3V Today M25.559 - Pain in unspecified hip XR lumbar spine 2-3V Today M54.50 - Low back pain, unspecified Lyme IgG/IgM w/reflex to WB Today M25.559 - Pain in unspecified hip, M53.3 - Sacrococcygeal disorders, not elsewhere classified, M54.50 - Low back pain, unspecified Erythrocyte Sedimentation Rate Today M25.559 - Pain in unspecified hip, M53.3 - Sacrococcygeal disorders, not elsewhere classified, M54.50 - Low back pain, unspecified C Reactive Protein Today M25.559 - Pain in unspecified hip, M53.3 - Sacrococcygeal disorders, not elsewhere classified, M54.50 - Low back pain, unspecified Medications: New diclofenac sodium 50 mg PO Q12H PRN 60 tabs 0RF pain 30 days Coding Level of Care Code Tele Est Pt Level 3 (94749) Diagnoses Hip pain M25.559 SI (sacroiliac) joint dysfunction M53.3 Lower back pain M54.50
== END 2024-02-27 10:56 | disposition home or self-care (01) ==
LOC: HO.HMGC 07:00
PROVIDERS: PCP Nurse Practitioner Family; Visit Provider Nurse Practitioner Family
DX: M25.551 Pain in right hip (principal); M53.3 Sacrococcygeal disorders, not elsewhere classified; M54.50 Low back pain, unspecified; M25.552 Pain in left hip
CPT/HCPCS: 99213

== ENCOUNTER 2024-02-28 12:01 | Outpatient (REF) | payer BC, SELFPAY ==
--- NOTE | ~2024-02-28 | XR_ITS ---
EXAMINATION: XR BILATERAL HIPS XR SACROILIAC JOINTS XR LUMBAR SPINE CLINICAL INFORMATION: Sacrococcygeal disorders, low back pain, hip pain. COMPARISON: Left hip 02/18/2015. TECHNIQUE: 3 views of the lumbar spine, 3 views of the sacroiliac joints, 2 views of each hip. FINDINGS: LUMBAR SPINE: Mild levoscoliosis of the lumbar spine. Small pelvic calcifications are likely phleboliths. Facet arthritis in the [id number] lumbar spine. Marked degenerative changes with loss of disc space height, subchondral sclerosis, and facet arthritis at L5-S1. SACROILIAC JOINTS: Mild degenerative changes in the bilateral sacroiliac joints. RIGHT HIP: Mild degenerative changes in the hip. Alignment preserved. LEFT HIP: Mild degenerative changes in the hip. Alignment preserved. XR/XR hips ZARINA min 3V IMPRESSION: 1. Marked degenerative disc disease with facet arthritis at L5-S1. 2. Mild degenerative changes in the bilateral sacroiliac joints. 3. Mild degenerative changes in the bilateral hips. This study was presented today March 12, 2024 for interpretation. Stat results provided at this time as requested by referring provider.
--- NOTE | ~2024-02-28 | XR_ITS ---
EXAMINATION: XR BILATERAL HIPS XR SACROILIAC JOINTS XR LUMBAR SPINE CLINICAL INFORMATION: Sacrococcygeal disorders, low back pain, hip pain. COMPARISON: Left hip 02/18/2015. TECHNIQUE: 3 views of the lumbar spine, 3 views of the sacroiliac joints, 2 views of each hip. FINDINGS: LUMBAR SPINE: Mild levoscoliosis of the lumbar spine. Small pelvic calcifications are likely phleboliths. Facet arthritis in the [id number] lumbar spine. Marked degenerative changes with loss of disc space height, subchondral sclerosis, and facet arthritis at L5-S1. SACROILIAC JOINTS: Mild degenerative changes in the bilateral sacroiliac joints. RIGHT HIP: Mild degenerative changes in the hip. Alignment preserved. LEFT HIP: Mild degenerative changes in the hip. Alignment preserved. XR/XR sacroiliac joint 1-2V IMPRESSION: 1. Marked degenerative disc disease with facet arthritis at L5-S1. 2. Mild degenerative changes in the bilateral sacroiliac joints. 3. Mild degenerative changes in the bilateral hips. This study was presented today March 12, 2024 for interpretation. Stat results provided at this time as requested by referring provider.
--- NOTE | ~2024-02-28 | XR_ITS ---
EXAMINATION: XR BILATERAL HIPS XR SACROILIAC JOINTS XR LUMBAR SPINE CLINICAL INFORMATION: Sacrococcygeal disorders, low back pain, hip pain. COMPARISON: Left hip 02/18/2015. TECHNIQUE: 3 views of the lumbar spine, 3 views of the sacroiliac joints, 2 views of each hip. FINDINGS: LUMBAR SPINE: Mild levoscoliosis of the lumbar spine. Small pelvic calcifications are likely phleboliths. Facet arthritis in the [id number] lumbar spine. Marked degenerative changes with loss of disc space height, subchondral sclerosis, and facet arthritis at L5-S1. SACROILIAC JOINTS: Mild degenerative changes in the bilateral sacroiliac joints. RIGHT HIP: Mild degenerative changes in the hip. Alignment preserved. LEFT HIP: Mild degenerative changes in the hip. Alignment preserved. XR/XR lumbar spine 2-3V IMPRESSION: 1. Marked degenerative disc disease with facet arthritis at L5-S1. 2. Mild degenerative changes in the bilateral sacroiliac joints. 3. Mild degenerative changes in the bilateral hips. This study was presented today March 12, 2024 for interpretation. Stat results provided at this time as requested by referring provider.
[2024-02-28 13:08] LABS: MANUAL DIFF FLAG NO
[2024-02-28 13:24] LABS: Basophils Absolute Auto 0.1 X10*3/uL (0.0-0.2); Basophils Percent Auto 0.9 % (0-2); Eosinophils Absolute Auto 0.1 X10*3/uL (0.0-0.4); Eosinophils Percent Auto 1.5 % (0-4); Hematocrit 40.4 % (37.0-47.0); Hemoglobin 13.7 g/dl (12.0-16.0); Imm Gran Abs Auto 0.02 X10*3/uL (0.00-0.03); Imm Gran Pct Auto 0.3 % (0.0-0.4); Immature Retic Fraction 10.9 % (3.0-15.9); Lymphocytes Absolute Auto 2.2 X10*3/uL (1.2-4.9); Lymphocytes Percent Auto 29.9 % (20-40); Mean Corpuscular HGB Conc 33.9 g/dl (31.0-35.0); Mean Corpuscular Hemoglobin 31.3 pg (27.0-33.0); Mean Corpuscular Volume 92.2 fL (80.0-98.0); Mean Platelet Volume 10.3 fL (9.4-12.3); Monocytes Absolute Auto 0.5 X10*3/uL (0.1-1.2); Monocytes Percent Auto 6.7 % (2-11); Neutrophils Absolute Auto 4.5 x10*3/uL (2.0-8.3); Neutrophils Percent Auto 60.7 % (45-73); Platelet Count 353 X10*3/uL (160-400); Red Blood Count 4.38 X10*6/uL (4.20-5.50); Red Cell Distribution Width 13.2 % (11.0-16.0); Reticulocyte Percent 1.1 % (0.5-1.8); Reticulocytes Absolute 0.048 X10*6/uL (0.026-0.095); White Blood Count 7.4 X10*3/uL (4.8-10.8)
[2024-02-28 13:47] LABS: Rheumatoid Factor < 13.0 IU/mL (<15.0)
[2024-02-28 13:48] LABS: C Reactive Protein 0.22 mg/dL (< or = 0.50); Iron 192 mcg/dL (30-160); Percent Iron Saturation 46 % (15-50); Total Iron Binding Capacity 414 mcg/dL (228-428); Unsaturated Iron Binding 222 ug/dL
[2024-02-28 14:02] LABS: Ferritin 27 ng/mL (10-250)
[2024-02-28 14:09] LABS: Erythrocyte Sedimentation Rate 6 MM/HR (0-20)
[2024-02-28 14:15] LABS: Folate 12.9 ng/mL (> or = 4.0); Vitamin B12 290 pg/mL (200-900)
[2024-03-01 05:04] LABS: Lyme Abs Screen <0.90 index
[2024-03-01 16:19] LABS: A. Phagocytphilium DNA,RT-PCR NOT DETECTED (NOT DETECTED); Babesia Microti DNA, RT-PCR NOT DETECTED (NOT DETECTED); Borrelia Miyamotoi,DNA RT-PCR NOT DETECTED (NOT DETECTED); E.Chaffeensis DNA RT-PCR NOT DETECTED (NOT DETECTED); Lyme(Borrelia ssp)DNA RT-PCR NOT DETECTED (NOT DETECTED)
[2024-03-03 13:27] LABS: Hematocrit 40.2 % (35.0-45.0); Hemoglobin 13.7 g/dL (11.7-15.5); MCH 31.6 pg (27.0-33.0); MCV 92.8 fL (80.0-100.0); RBC 4.33 Million/uL (3.80-5.10); RDW 12.9 % (11.0-15.0)
[2024-03-03 21:03] LABS: Transglutaminase IgA <1.0 U/mL
[2024-03-05 07:05] LABS: Anti Nuclear Antibody Screen NEGATIVE (NEGATIVE)
[2024-03-05 14:53] LABS: Cyclic Citrullinated Peptide 17 UNITS
[2024-03-10 12:23] LABS: Endomysial IgA Antibody Negative (Negative)
== END 2024-02-28 12:02 | disposition home or self-care (01) ==
LOC: HO.HMGCX 12:01
PROVIDERS: PCP Nurse Practitioner Family; Visit Provider Nurse Practitioner Family
DX: M54.50 Low back pain, unspecified (principal); M53.3 Sacrococcygeal disorders, not elsewhere classified; D64.9 Anemia, unspecified; M25.551 Pain in right hip; M25.552 Pain in left hip
CPT/HCPCS: 36415; 72100; 72200; 73522; 82607; 82728; 82746; 83020; 83540; 85014; 85018; 85025; 85041; 85045; 85652; 86038; 86140; 86200; 86231; 86364; 86431; 86617; 86618; 87468; 87469; 87478; 87484; 87798

== ENCOUNTER 2024-10-02 10:59 | Outpatient (AMB) | payer BC, SELFPAY ==
--- NOTE | 2024-10-02 11:09 | A.OFFPC_ITS ---
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 Allergies oxycodone [From Tylox] Allergy (Unknown, Verified 10/02/24 11:10) severe vomiting Medication List - Last Reconciled 10/02/24 by Marcos Del Castillo, [facility]- norethindrone-e.estradiol-iron 1.5 mg-30 mcg (21)/75 mg (7) (Gina Fe 1.5/30 (28)) tabs PO DAILY paroxetine HCl mg PO DAILY Tobacco use date assessed: 10/02/24 Dental Screening Dental Screen Date: 10/02/24 Did you have a dental visit in the last 12 months?: Yes Did you have a dental problem in the last 6 months where you did not have access to dental care?: No Was dental information given to patient?: Patient has dentist HPI Annual PE HPI Details History of Present Illness The patient is a 49-year-old female presenting for a physical examination. She maintains regular screenings with up-to-date mammogram and gynecological checks. She denies any acute symptoms such as chest pain or gastrointestinal issues. The patient has chronic lower back pain and is under the care of [facility], with further treatments planned. She remains active, frequently visiting the gym and reports no mental health concerns. Health Maintenance - Mammogram: Up-to-date - Gynecological screening: Current - Colon screening: Current Social History - Exercise: Very active in the gym Review of Systems - Cardiovascular: Denies chest pain - Respiratory: Denies shortness of breat h - Gastrointestinal: Denies abdominal wily n, blood in stool, constipation, diarrhea - Genitourinary: Denies urinary symptoms - Musculoskeletal: Reports chronic lower back pain, currently managed - Psychological: Denies anxiety, depress ion, suicidal ideation, homicidal ideation Physical Exam General: Cooperative, healthy appearing, comfortable, no acute distress and well developed Orientation: Patient oriented x3 Limitations: No limitations Head: Normal to inspection Ears: Hearing grossly normal bilaterally Nose: Normal external nose present Face and sinus: Normal facial exam Eyes: Appearance normal, both eyes and all related structures Neck: Normal visual inspection and Yes full ROM Respiratory: Normal respiratory effort and able to speak in complete sentences. Clear to auscultation bilaterally Cardiovascular: Regular rate and rhythm. Normal S1 and S2 GI: Normal to inspection. Soft to palpation and nontender Skin: No rashes or lesions noted Neuro: Patient oriented x3 Extremities: Normal to inspection, ongoing lower back issues noted Results Plan The patient will proceed with treatments for chronic lower back pain at [facility]. Her physical activity in the gym will be monitored to ensure it aligns with her back pain management plan. Current health screenings are satisfactory. Ongoing treatments will be evaluated for efficacy at [facility]. Discussion Notes I discussed with the patient the importance of continuing her treatment plan for chronic lower back pain with [facility]. We reviewed her health screenings, which are up to date, and emphasized the benefit of maintaining her active lifestyle at the gym to optimize her health outcomes. I will track her treatment notes to ensure a comprehensive understanding of her progress and will provide guidance as needed. Patient Instructions - Continue attending scheduled appointme nts at [facility] for lower back pain management. - Maintain an active lifestyle with gym workouts, ensuring they do not exacerbate back pain. - Report any new or worsening symptoms t o me immediately. [facility] Medical History No pertinent past medical history Surgical History Hx of dilation and curettage History of umbilical hernia repair Family History Father High cholesterol Mesothelioma CVD (cardiovascular disease) Mother High cholesterol HTN (hypertension) Macular degeneration History of heart attack CVD (cardiovascular disease) Diabetes mellitus Sister No problems noted. Brother No problems noted. Brother No problems noted. Maternal Grandmother Ovarian cancer Maternal Grandfather Cancer of prostate Paternal Grandmother Cancer Paternal Grandfather No problems noted. Paternal Uncle Cancer of pancreas Social History Household Members: Spouse and Children Household Members Other:: and two children Housing: House Alcohol intake: current Alcohol intake frequency: a few times a week Patient Tobacco Use Status: Never used Tobacco e-Cigarette/Vaping Use: Never Used Second Hand Smoke Exposure: No Current occupational status: employed Current occupation: [employer] Current occupational exposures/hazards: No Sexual orientation: Straight/Heterosexual Gender identity: Female Cognitive needs: No Hearing needs: No Vision needs: No Female Reproductive History Menstrual Age of Menarche: 12 Questionnaire PHQ-9 Over the last 2 weeks, how often have you been bothered by any of the following problems? 1. Little interest or pleasure in doing things: not at all 2. Feeling down, depressed, or hopeless: not at all 3. Trouble falling or staying asleep, or sleeping too much: not at all 4. Feeling tired or having little energy: not at all 5. Poor appetite or overeating: not at all 6. Feeling bad about yourself - or that you are a failure or have let yourself or your family down: not at all 7. Trouble concentrating on things, such as reading the newspaper or watching television: not at all 8. Moving or speaking so slowly that other people could have noticed. Or the opposite - being so fidgety or restless that you have been moving around a lot more than usual: not at all 9. Thoughts that you would be better off or of hurting yourself in some way : not at all Total score: 0 Depression Screening Interpretation: Negative Depression Screening Done: Yes 23960 - PHQ-9 Billing: Yes Source: Developed by Drs. Yeyo Andrade, Emily Arnett, Severo Castro and colleagues, with an educational paul from [employer]. Thrive Questionnaire Date Thrive assessed: 10/02/24 I am a: Patient What is your living situation today?: I have a steady place to live Within the past 12 months, did the food you bought not last and you didn't have the money to get more?: Never true Within the past 12 months, did you worry whether your food would run out before you got money to buy more?: Never true Do you have trouble paying for medicines?: No Do you have trouble getting transportation to medical appointments?: No Do you have trouble paying your heating and electricity bill?: No Do you have trouble taking care of your child, family member or friend?: No Do you have trouble with day-to-day activities such as bathing, preparing meals, shopping, managing finances, etc.?: No Are you currently unemployed and looking for a job?: No Are you interested in more education?: No Please select the resources that you would like help with: None Currently or been in a relationship where the following occur: No concerns reported THRIVE Score: 0 AUDIT C Alcohol Use Questionnaire (AUDIT-C) 1. How often do you have a drink containing alcohol?: 2-4 times a month 2. How many drinks containing alcohol do you have on a typical day when you are drinking?: 1 or 2 3. How often do you have six or more drinks on one occasion?: Never Total Score: 2 Score Reviewed/Action Taken: Yes JAC-7 AMB Questionnaire JAC-7 Date JAC - 7 assessed: 10/02/24 Feeling nervous, anxious, or on edge: 0 = Not at all Not being able to stop or control worryin = Not at all Worrying too much about different things: 0 = Not at all Trouble relaxin = Not at all Being so restless that it is hard to sit still: 0 = Not at all Becoming easily annoyed or irritable: 0 = Not at all Feeling afraid as if something awful might happen: 0 = Not at all Total JAC-7 score (0-4 normal; 5-9 mild; 10-14 moderate; 15-21 severe): 0 Source: Developed by Drs. Yeyo Andrade, Emily Arnett, Severo Castro and colleagues, with an educational paul from [employer]. JAC-7 Assessment Billing JAC-7 Assessment Tool: JAC-7 Assessment 16797 Physical exam (Primary Care) Vital Signs: Last Vital Signs Temp 97.9 F 10/02/24 11:10 Pulse 82 10/02/24 11:10 BP 108/70 10/02/24 11:10 Pulse Ox 99 10/02/24 11:10 BMI result Body Mass Index 24.3 Tobacco/Smoking Status: Tobacco use Status Tobacco use date assessed 10/02/24 10/02/24 11:16 Patient Tobacco Use Status Never used Tobacco 10/02/24 11:16 e-Cigarette/Vaping Use Never Used 10/02/24 11:16 PHQ-9: PHQ-9 Score PHQ-9: Total score 0 10/02/24 11:16 Depression Screening Interpretation: Negative Thrive Assessment: Date of Thrive Assessment Date Thrive assessed 10/02/24 10/02/24 11:16 Currently or been in a relationship where the following occur: No concerns reported Coding Level of Care Code Est Pt Prev Care 40-64y(70639) Diagnoses Physical exam Z00. Additional Codes JAC-7 Assessment Billing - JAC-7 Assessment Tool: JAC-7 Assessment 82246 ([id number]) PHQ-9 - 40052 - PHQ-9 Billing: Yes ([id number]) Assessment & Plan Assessment & Plan (1) Physical exam: Code(s): Z00. - Encounter for general adult medical examination without abnormal findings Category: Medical Plan . Orders: Orders Comprehensive Dalton. Panel Fast Today Z00.00 - Encounter for general adult medical examination without abnormal findings UA CC w/rflx Micro + Cult Today Z00.00 - Encounter for general adult medical examination without abnormal findings Vitamin D 25-OH Total Today Z00.00 - Encounter for general adult medical examination without abnormal findings Complete Blood Count Auto Diff Today Z00.00 - Encounter for general adult medical examination without abnormal findings TSH reflex Free T4 Today Z00.00 - Encounter for general adult medical examination without abnormal findings Lipid Panel Today Z00.00 - Encounter for general adult medical examination without abnormal findings
[2024-10-02 11:10] VITALS: BP 108/70; PULSE 82; TEMP 36.6; O2SAT 99; BMI 24.3
== END 2024-10-02 12:58 | disposition home or self-care (01) ==
PROVIDERS: PCP Nurse Practitioner Family; Visit Provider Nurse Practitioner Family
DX: Z00.00 Encounter for general adult medical examination without abnormal findings (principal)

== ENCOUNTER → 2024-10-02 10:59 | Outpatient (BNVA) | payer BC, SELFPAY | PROVIDERS: PCP Nurse Practitioner Family; Visit Provider Nurse Practitioner Family | DX: Z00.00 Encounter for general adult medical examination without abnormal findings (principal) | CPT/HCPCS: 96127 ==

== ENCOUNTER → 2025-02-23 11:00 | Outpatient (BNV) | payer BC, SELFPAY | PROVIDERS: PCP Nurse Practitioner Family; Visit Provider Radiology Body Imaging | DX: Z12.31 Encounter for screening mammogram for malignant neoplasm of breast (principal) | CPT/HCPCS: 77063; 77067 ==

== ENCOUNTER 2025-02-23 11:04 | Outpatient (REF) | payer BC, SELFPAY ==
--- OUTSIDE RECORDS SUMMARY | 2025-02-23 12:15 | XMS_ITS | Encounter Summary ---
Author Organization [facility] Address [address] [place] [phone] Phone Care Team Providers Care Director Clinical Information Services Name Role Phone Delmi Gutierrez GEOLOGIC TECHNICIAN Unavailable [phone] Cecilia Torres GEOLOGIC TECHNICIAN Unavailable [phone] Tony Mansfield MD Unavailable [phone] MD Unavailable [phone] Axel Bland MD Unavailable [phone] Marcos Del Castillo GEOLOGIC TECHNICIAN Primary Care Provider + Reason for Referral * MRI/CAT Scan - Closed Specialty Diagnoses / Procedures Referred By Contac t Referred To Contact Radiology Diagnoses Vertebrogenic low back pain Procedures MRI Lumbar Spine CHG MRI, LUMBAR SPINE CHG MRI, LUMBAR SPINE COMBO CHG MRI, LUMBAR SPINE CONTRAST Greg Her DO [address] [place] [phone] Phone: tel: fax: [email or web address] Referral ID Status Reason Start Date Expiration Date Visits Re quested Visits Authorized [id number] Closed 04/15/2024 06/13/2024 1 1 Encounter Details Date Type Department Care Team (Latest Contact Info) Description 04/15/2024 Transcribe Orders Virtual Department [address] [place] [address] Greg Her DO [address] [place] [phone] [email or web address] Vertebrogenic low back pain (Primary Dx) Social History Tobacco Use Types Packs/Day Years Used Date Smoking Tobacco: Never Assessed Education Answer Date Recorded Are you interested in more education? Not on abbie e 12/01/2022 Are you concerned about learning? Not on file 12/01/2022 No 12/01/2022 No 12/01/2022 Digital Access Answer Date Recorded No 12/29/2022 No 12/29/2022 No 12/29/2022 Reliable internet access at home? Not on file 12/29/2022 Device with a working camera? Not on file Comments Unknown Sex and Gender Information Value Date Recorded Sex Assigned at Not on file Legal Sex Female 9:30 PM EDT Gender Identity Not on file Sexual Orientation Not on file documented as of this encounter Plan of Treatment Not on file documented as of this encounter Results * MRI LUMBAR SPINE (NEURO) WITHOUT CONTRAST (05/29/2024 12:30 PM EDT) Anatomical Region Laterality Modality L-spine Magnetic Resonan ce 05/30/2024 10:0 9 AM EDT Impressions 05/30/2024 10:21 AM EDT 1. L5-S1 degenerative disc disease and facet joint arthropathy with probable Modic type I endplate changes. 2. No high-grade spinal canal stenosis. 3. Mild foramina stenosis at L4-L5 and L5-S1. Narrative 05/30/2024 10:21 AM EDT MRI LUMBAR SPINE (NEURO) WITHOUT CONTRAST Referring clinician's provided indication for this examination in Epic: Outside Radiology Order; low back pain TECHNIQUE: MRI LUMBAR SPINE (NEURO) WITHOUT CONTRAST Multi-sequence, multi-planar MRI of the lumbar spine was performed without intravenous contrast. COMPARISON: None. FINDINGS: LUMBAR SPINE: Alignment and Vertebrae: Vertebral alignment and body heights are normal. No compression fracture. Marrow: No bone marrow replacing lesion. Discs and Endplates: Loss of disc height and signal at L5-S1 with endplate marrow edema, probably Modic type I endplate changes. No signal abnormality seen within the intervertebral disc. Significant prevertebral soft tissue thickening or ed edema. Conus: Normal. Soft Tissues: Tip of the conus ends at L1. No cord compression. Other Findings: None. Findings by level: T12-L1: No spinal or foraminal stenosis. L1-L2: No spinal or foraminal stenosis. L2-L3: No spinal or foraminal stenosis. L3-L4: No spinal or foraminal stenosis. L4-L5: Disc bulge and mild facet joint arthropathy. No high-grade spinal canal stenosis. Mild encroachment of the foramina. L5-S1: Disc/ossify complex and facet joint arthropathy. No spinal canal stenosis. Mild foraminal stenosis. Procedure Note Bandar Foy MD - 05/30/2024 MRI LUMBAR SPINE (NEURO) WITHOUT CONTRAST Referring clinician's provided indication for this examination in Epic:Outside Radiology Order; low back pain TECHNIQUE: MRI LUMBAR SPINE (NEURO) WITHOUT CONTRAST Multi-sequence, multi-planar MRI of the lumbar spine was performed withoutintravenous contrast. COMPARISON: None. FINDINGS: LUMBAR SPINE: Alignment and Vertebrae: Vertebral alignment and body heights are normal.No compression fracture. Marrow: No bone marrow replacing lesion. Discs and Endplates: Loss of disc height and signal at L5-S1 with endplatemarrow edema, probably Modic type I endplate changes. No signalabnormality seen within the intervertebral disc. Significant prevertebralsoft tissue thickening or ed edema. Conus: Normal. Soft Tissues: Tip of the conus ends at L1. No cord compression. Other Findings: None. Findings by level: T12-L1: No spinal or foraminal stenosis. L1-L2: No spinal or foraminal stenosis. L2-L3: No spinal or foraminal stenosis. L3-L4: No spinal or foraminal stenosis. L4-L5: Disc bulge and mild facet joint arthropathy. No high-grade spinalcanal stenosis. Mild encroachment of the foramina. L5-S1: Disc/ossify complex and facet joint arthropathy. No spinal canalstenosis. Mild foraminal stenosis. IMPRESSION: 1. L5-S1 degenerative disc disease and facet joint arthropathy withprobable Modic type I endplate changes. 2. No high-grade spinal canal stenosis. 3. Mild foramina stenosis at L4-L5 and L5-S1. us Greg Her DO IMG MR XSPECIALTY Final Resu lt documented in this encounter Visit Diagnoses Diagnosis Vertebrogenic low back pain- Primary Vertebrogenic low back pain documented in this encounter Care Teams Director Clinical Information Services Relationship Specialty Start Date End Date Marcos Del aCstillo, GEOLOGIC TECHNICIAN [address] [place] [phone] [email or web address] PCP - General Family Medicine 01/15/22 Delmi Gutierrez NP [address] [place] [address] Historical LMR Provider 05/21/17 Cecilia Torres NP [address] [place] [id number] Historical LMR Provider 05/21/17 Tony Mansfield MD [address] [place] [address] [address] [place] [address] [email or web address] Historical LMR Provider 05/21/17 Lane Walker MD [address] [place] [phone] Historical LMR Provider 05/21/17 Axel Bland MD [address] [place], [place] [id number] [place] [phone] [email or web address] Historical LMR Provider 05/21/17 documented as of this encounter Additional Source Comments The information contained in this document represents components of the legal health record. It is not the complete legal health record.[facility]
== END 2025-02-23 11:05 | disposition home or self-care (01) ==
LOC: HO.MAMMO 11:04
PROVIDERS: PCP Nurse Practitioner Family; Visit Provider Nurse Practitioner Family
DX: Z12.31 Encounter for screening mammogram for malignant neoplasm of breast (principal)
CPT/HCPCS: 77063; 77067

== ENCOUNTER 2025-04-16 09:58 | Outpatient (AMB) | payer BC, SELFPAY ==
--- NOTE | 2025-04-16 10:01 | MHC.OFFVIS ---
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 Patient was referred by her PCP 02/16/25. Patient has a history of chronic lower back pain and was treated at [facility]. Patient has had an Xray of her Lumbar spine, Sacroiliac joint and hip. Patient has attended physical therapy back in 2021. At today's visit she states summer she had lower back pain that radiated into her hips. Patient states that she had a Lumbar MRI 2023. Patient did have injections in her lower back, joints and mild to no relief. She added that she did have Intracept procedure. Allergies oxycodone (From Tylox) Allergy (Unknown, Verified 10/02/24 11:10) severe vomiting HPI Comments Details: Reviewed notes from [facility], dated 03/13/2025. Per their note, patient has had L5-S1 interlaminar epidural injection 07/01/2024, no relief. Bilateral SI joint injections 08/08/2024, partial relief 30% that day. Intracept L4, S1 11/20/2024. Relieved the stabbing pain on lower back and legs. They have recommended trial of medial branch blocks diagnostic (scheduled for May 2025), for consideration of radiofrequency ablation. She was supposed to have repeat SI joint injections 04/21 but patient did not want to proceed, canceled. She's been going to MRI lumbar spine no contrast 05/29/2024 done at [facility], reported L5-S1 degenerative disc disease and facet joint arthropathy without high-grade spinal stenosis, mild foraminal stenosis L4-5 and L5-S1. Full report will be scanned on EMR and CD uploaded. PCP notes reviewed, who recommended to see me to see second opinion. She points to midline lumbar/sacral area, wraps around. Does not radiate down anymore since the intracept. No numbness on legs/feet. No groin pain. She is active, but can't bend forward without pain. No weakness. No bladder/bowel changes. [facility] Medical History (Updated 04/16/25 @ 11:27 by Sherrell Theodore MD) Lumbar foraminal stenosis Degeneration of intervertebral disc at L5-S1 level No pertinent past medical history Surgical History (Updated 02/16/25 @ 06:50 by DINO Gonzalez) History of lumbar surgery Hx of dilation and curettage History of umbilical hernia repair Family History Father High cholesterol Mesothelioma CVD (cardiovascular disease) Mother High cholesterol HTN (hypertension) Macular degeneration History of heart attack CVD (cardiovascular disease) Diabetes mellitus Sister No problems noted. Brother No problems noted. Brother No problems noted. Maternal Grandmother Ovarian cancer Maternal Grandfather Cancer of prostate Paternal Grandmother Cancer Paternal Grandfather No problems noted. Paternal Uncle Cancer of pancreas Social History Household Members: Spouse and Children Household Members Other:: and two children Housing: House Alcohol intake: current Alcohol intake frequency: a few times a week Patient Tobacco Use Status: Never used Tobacco e-Cigarette/Vaping Use: Never Used Second Hand Smoke Exposure: No Current occupational status: employed Current occupation: [employer] Current occupational exposures/hazards: No Sexual orientation: Straight/Heterosexual Gender identity: Female Cognitive needs: No Hearing needs: No Vision needs: No Female Reproductive History Menstrual Age of Menarche: 12 Review of Systems Const All systems reviewed & are unremarkable except as noted in HPI and below Physical Exam Exam Exam: Constitutional: Patient appears to be in no acute distress, well nourished and well developed. Patient was appropriately conversant and oriented. Good historian. MSK: No specific abnormalities found on inspection of the spine and all extremities. No pain with palpation over the lumbar area. Denied tenderness over spinous processes or facets or paraspinals. Focal tenderness in right SI joint, much more on right compared to left. But left is also tender. Some tenderness along right ITB. Lumbar ROM was full. Bilateral hip, knee and ankle ROM WNL. No ligamentous laxity or crepitance. No increased effusion. Straight-leg raising test negative. FABERE test positive lower back pain. Gillet test showed stiffness on right SI joint. Michael test is negative. Piriformis test is negative. Strength is 5/5 in all muscle groups tested. No increased tone noted. Neurological: Neurologic examination of the upper and lower extremities was nonfocal with intact sensation, muscle stretch reflexes and without focal motor deficits . Connors?s negative bilaterally. Babinski was down going bilaterally. Clonus was negative. Gait is non-antalgic without loss of balance. Vital Signs: BMI result Body Mass Index 0.2 Results Reviewed Results Reviewed: I reviewed records from the following: As above Assessment & Plan Assessment & Plan (1) Sacroiliac joint dysfunction of right side: Code(s): M53.3 - Sacrococcygeal disorders, not elsewhere classified Category: Medical Plan Based on her exam, I think her pain is stemming from the right SI joint. It is definitely more stuck compared to the left. She has some tenderness over ITB as well. Suspect this is mechanical in nature. We used a spine/bone model to discuss what SI joint is and discussed maneuvers that would exacerbate the SI joint pain. Would recommend finding a physical therapist who can teach her how to readjust her SI joints, and to do this from time to time on her own, apply to her lifestyle. She can reconsider the SI joint injections, knowing that it is only for temporary relief. I am not sure how much a lumbar facet injection or MBB would help. She did not have any lumbar facet tenderness. She does not show any signs of lumbar radiculopathy or myelopathy. MRI did not report any significant disc herniation or spinal stenosis. She can get a roller to stretch out ITB. Assessment and plan discussed with patient, and patient was agreeable. All questions were answered thoroughly. Total of 45 minutes spent today including chart review, results review, history taking, physical examination, discussion of assessment and plan, and coordination of care. Sherrell Theodore MD, LETHA Board Certified, [place] Board [employer] and Rehabilitation (ABPMR) Board Certified, [place] Board [employer] Electrodiagnostic Medicine (ABEM) Coding Level of Care Code New Pt Level 4 (00060) Diagnoses Sacroiliac joint dysfunction of right side M53.3
--- OUTSIDE RECORDS SUMMARY | 2025-04-16 11:57 | XMS_ITS | Encounter Summary ---
Author Organization [facility] Address [address] [place] [address] Phone Care Team Providers Care Telephone Supervisor Name Role Phone Delmi Gutierrez PROFESSOR OF MEDICINE Unavailable [phone] Cecilia Torres PROFESSOR OF MEDICINE Unavailable [phone] Tony Mansfield MD Unavailable [phone] MD Unavailable [phone] Axel Bland MD Unavailable Marcos Del Castillo NP Primary Care Provider + Encounter Details Date Type Department Care Team (Late st Contact Info) Description 04/15/2024 Procedure Pass [facility], [address] [place] [address] Social History Tobacco Use Types Packs/Day Years [...] on file documented as of this encounter Visit Diagnoses Not on filedocumented in this encounter Care Teams Telephone Supervisor Relationship Specialty Start Date End Date Marcos Del Castillo, STU [facility] [address] [place] [address] PCP - General Family Medicine 01/15/22 Delmi Gutierrez, STU [address] [place] [address] Historical LMR Provider 05/21/17 Cecilia Torres, STU [address] [place] [address] Historical LMR Provider 05/21/17 Tony Mansfield MD [address] [place] [address] [address] [place] [address] [email or web address] Historical LMR Provider 05/21/17 Lane Walker MD [address] [place] [address] 7 [place] [phone] Historical LMR Provider 05/21/17 Axel Bland MD [address] [place] [address] [address] [place] [phone] [email or web address] Historical LMR Provider 05/21/17 documented as of this encounter Additional Source Comments The information contained in this document represents components of the legal health record. It is not the complete legal health record.[facility]
--- OUTSIDE RECORDS SUMMARY | 2025-04-16 11:57 | XMS_ITS | Clinical Summary ---
Author Organization [facility] Address [address] [place] [address] Phone Care Team Providers Care Building Supplies Salesperson Retail Name Role Phone GutierrezDelmi mak CHEESEMAKING LABORER Unavailable [phone] Cecilia Torres CHEESEMAKING LABORER Unavailable [phone] Tony Mansfield MD Unavailable [phone] MD Unavailable Axel Bland MD Unavailable Marcos Del Castillo NP Primary Care Provider + Allergies No known active allergies Medications zusqizcn-fyg-vm rrous fumarate (MULTI VITAMIN) 9 mg iron/15 mL Liqd as directed Active b complex vitamins (VITAMINS B COMPLEX) tablet as directed Ac tive Social History Tobacco Use Types Packs/Day Years [...] on file Sexual Orientation Not on file Last Filed Vital Signs Vital Sign Reading Time Taken Comments Blood Pressure 111/73 01/15/2022 10:06 AM EDT Pulse 89 01/15/2022 10:06 AM EDT Temperature 37 C (98.6 F) 01/15/2022 10:06 AM EDT Respiratory Rate 16 01/15/2022 10:06 AM EDT Oxygen Saturation 100% 01/15/2022 10:06 AM EDT Inhaled Oxygen Concentration - - Weight 56.7 kg (125 lb) 05/23/2024 5:15 PM EDT Height 157.5 cm (5' 2 ) 05/23/2024 5:15 PM EDT Body Mass Index 22.86 05/23/2024 5:15 PM EDT Plan of Treatment Health Maintenance Due Date Last Done Comments LIPID PANEL 1974 DEPRESSION SCREENING 1986 SMOKING Hx and SMOKELESS TOBACCO SCREENING 1987 HEPATITIS C SCREENING 1992 HIV ONE-TIME SCREENING (18-65 YEARS) 1992 PAP SMEAR 1995 MAMMOGRAM 2014 COLOGUARD 2019 COLONOSCOPY 2019 COLORECTAL CANCER SCREENING 2019 FIT TEST 2019 FOBT 2019 SIGMOIDOSCOPY 2019 VIRTUAL COLONOSCOPY 2019 PNEUMOCOCCAL VACCINES (50+ years) (1 of 1 - PCV) 2024 ZOSTER VACCINES (1 of 2) 2024 INFLUENZA VACCINE (#1) 2025 , 05/12/2020, 05/29/2019, Additional history exists COVID-19 VACCINE ( season) 2025 09/02/2020, 08/12/2020 Adult Td,Tdap Booster 08/06/2027 08/06/2017 HEPATITIS A VACCINES Aged Out No long er eligible based on patient's age to complete this topic HIB VACCINES Aged Out No longer eligi ble based on patient's age to complete this topic MENINGOCOCCAL VACCINES (ACWY) Aged Out No longer eligible based on patient's age to complete this topic MENINGOCOCCAL VACCINES (B) Aged Out N o longer eligible based on patient's age to complete this topic Medical Devices Not on file [place] [place] [address] [place] [address] [place] [address] [place] [address] [place] [address] [place] [address] [place] [address] Care Teams Building Supplies Salesperson Retail Relationship Specialty Start Date End Date Marcos Del Castillo NP [address] [facility] [place] [address] PCP - General Family Medicine 01/15/22 Delmi Gutierrez NP [address] [place] [address] Historical LMR Provider 05/21/17 Cecilia Torres NP [address] [place] [address] Historical LMR Provider 05/21/17 Tony Mansfield MD [address] [place] [address], [address] [place] [address] [email or web address] Historical LMR Provider 05/21/17 Lane Walker MD [address] [place] [address] 7 [place] [address] Historical LMR Provider 05/21/17 Axel Bland MD [address] [place] [address] [address] [place] [phone] [email or web address] Historical LMR Provider 05/21/17 Additional Source Comments The information contained in this document represents components of the legal health record. It is not the complete legal health record.[facility]
== END 2025-04-16 10:39 | disposition home or self-care (01) ==
LOC: HO.HOS 09:59
PROVIDERS: PCP Nurse Practitioner Family; Visit Provider Physical Medicine & Rehabilitation
DX: M53.3 Sacrococcygeal disorders, not elsewhere classified (principal)
CPT/HCPCS: 99204

== ENCOUNTER 2025-06-04 07:49 | Outpatient (REF) | payer BC, SELFPAY ==
--- OUTSIDE RECORDS SUMMARY | 2025-06-04 07:53 | XMS_ITS | Clinical Summary ---
Author Organization [facility] Address [address] [place] [address] Phone Care Team Providers Care Second Class Welder Name Role Phone GutierrezDelmi mak TERRITORY ACCOUNT MANAGER Unavailable [phone] Cecilia Torres TERRITORY ACCOUNT MANAGER Unavailable [phone] Tony Mansfield MD Unavailable Lane Walker MD Unavailable Axel Bland MD Unavailable Marcos Del Castillo NP Primary Care Provider + Allergies No known active allergies Medications cxuoeevp-dlx-dd rrous fumarate (MULTI VITAMIN) 9 mg iron/15 [...] 05/12/2020, 05/29/2019, Additional history exists COVID-19 VACCINE (2024- season) 2025 09/02/2020, 08/12/2020 Adult Td,Tdap Booster 08/06/2027 08/06/2017 RSV VACCINE (1 - 1-dose 75+ series) 2049 HEPATITIS A VACCINES Aged Out No long [...] topic Medical Devices Not on file [place] [address] [place] [address] [place] [address] [place] [address] [place] [address] [place] [address] Care Teams Second Class Welder Relationship Specialty Start Date End Date Marcos Del Castillo NP [address] [facility] [place] [address] PCP - General Family Medicine 01/15/22 Delmi Gutierrez NP [address] [place] [address] Historical LMR Provider 05/21/17 Cecilia Torres NP [address] [place] [address] Historical LMR Provider 05/21/17 Tony Mansfield MD [address] [place] [address] 7 [place] [address] [email or web address] Historical LMR Provider 05/21/17 Lane Walker MD [address] [place] [phone] Historical LMR Provider 05/21/17 Axel Bland MD [address] [place] [address] [address] [place] [address] [email or web address] Historical LMR Provider 05/21/17 Additional Source Comments The information contained in this document represents components of the legal health record. It is not the complete legal health record.[facility]
--- OUTSIDE RECORDS SUMMARY | 2025-06-04 07:53 | XMS_ITS | Encounter Summary ---
Author Organization [facility] Address [address] [place] [address] Phone Care Team Providers Care Supervisor Research Kennel Name Role Phone Delmi Gutierrez ULTRASOUND TESTER Unavailable [phone] Cecilia Torres ULTRASOUND TESTER Unavailable [phone] Tony Mansfield MD Unavailable Lane Walker MD Unavailable [phone] Axel Bland MD Unavailable [phone] Marcos Del Castillo ULTRASOUND TESTER Primary Care Provider + Reason for Referral * MRI/CAT Scan - Closed Specialty Diagnoses / Procedures Referred By Contac t Referred To Contact Radiology Diagnoses Vertebrogenic low back pain Procedures MRI Lumbar Spine CHG MRI, LUMBAR SPINE CHG MRI, LUMBAR SPINE COMBO CHG MRI, LUMBAR SPINE CONTRAST Greg Her DO [address] [place] [address] Phone: tel: fax: [email or web address] Referral ID Status Reason Start Date Expiration Date Visits Re quested Visits Authorized [id number] Closed 04/15/2024 06/13/2024 1 1 Encounter Details Date Type Department Care Team (Latest Contact Info) Description 04/15/2024 Transcribe Orders Virtual Department [address] [place] [address] Greg Her DO [address] [place] [address] [email or web address] Vertebrogenic low back pain (Primary Dx) Social [...] pain documented in this encounter Care Teams Supervisor Research Kennel Relationship Specialty Start Date End Date Marcos Del Castillo, STU [address] [place] [address] [place] [address] PCP - General Family Medicine 01/15/22 Delmi Gutierrez [place] [address] Historical LMR Provider 05/21/17 Cecilia Torres NP [address] [place] [address] Historical LMR Provider 05/21/17 Tony Mansfield MD [address] [place] [address] 7 [place] [address] [email or web address] Historical LMR Provider 05/21/17 Lane Walker MD [address] [place] [phone] Historical LMR Provider 05/21/17 Axel Bland MD [address] [place], [place] [address] [place] [phone] [email or web address] Historical LMR Provider 05/21/17 documented as of this encounter Additional Source Comments The information contained in this document represents components of the legal health record. It is not the complete legal health record.[facility]
--- OUTSIDE RECORDS SUMMARY | 2025-06-04 07:53 | XMS_ITS | Encounter Summary ---
Author Organization [facility] Address [address] [place] [address] Phone Care Team Providers Care Research Laboratory Technician Name Role Phone Delmi Gutierrez CURRICULUM AND ASSESSMENT COORDINATOR Unavailable [phone] Cecilia Torres CURRICULUM AND ASSESSMENT COORDINATOR Unavailable [phone] Tony Mansfield MD Unavailable [phone] MD Unavailable [phone] Axel Bland MD Unavailable [phone] Marcos Del Castillo NP Primary Care Provider + Encounter Details Date Type Department Care Team (Late st Contact Info) Description 04/15/2024 Procedure Pass [facility], [address] [place] [address] Social History Tobacco Use Types Packs/Day Years [...] on filedocumented in this encounter Care Teams Research Laboratory Technician Relationship Specialty Start Date End Date Marcos Del Castillo, STU [facility] [place] [address] PCP - General Family Medicine 01/15/22 Delmi Gutierrez, STU [address] [place] [address] Historical LMR Provider 05/21/17 Cecilia Torres, STU [address] [place] [address] Historical LMR Provider 05/21/17 Tony Mansfield MD [address] [place] [address] [address] [place] [address] [email or web address] Historical LMR Provider 05/21/17 Lane Walker MD [address] [place] [address] 7 [place] [phone] Historical LMR Provider 05/21/17 Axel Bland MD [address] [place] [address] [address] [place] [phone] [email or web address] Historical LMR Provider 05/21/17 documented as of this encounter Additional Source Comments The information contained in this document represents components of the legal health record. It is not the complete legal health record.[facility]
[2025-06-04 10:17] LABS: MANUAL DIFF FLAG NO
[2025-06-04 10:27] LABS: Hematocrit 39.2 % (37.0-47.0); Hemoglobin 13.0 g/dl (12.0-16.0); Imm Gran Abs Auto 0.02 X10*3/uL (0.00-0.03); Imm Gran Pct Auto 0.3 % (0.0-0.4); Lymphocytes Absolute Auto 2.2 X10*3/uL (1.2-4.9); Mean Corpuscular HGB Conc 33.2 g/dl (31.0-35.0); Mean Corpuscular Hemoglobin 30.9 pg (27.0-33.0); Mean Corpuscular Volume 93.1 fL (80.0-98.0); NRBC Abs Auto 0.000 X10*3/uL (0.0-0.012); NRBC Pct Auto 0.0 /100WBC (0.0-0.2); Platelet Count 330 X10*3/uL (160-400); Red Blood Count 4.21 X10*6/uL (4.20-5.50); White Blood Count 6.9 X10*3/uL (4.8-10.8)
[2025-06-04 11:28] LABS: Appearance Urine Clear; Glucose Urine UA Negative (Negative); PH 6.0 (5.0-9.0); Specific Gravity - Urine 1.025 (1.005-1.025); UMIC TRIGGER UACC YES
[2025-06-04 11:41] LABS: UACC Culture Trigger YES
[2025-06-04 11:45] LABS: Alanine Aminotransferase 20 U/L (0-31); Albumin Level 4.4 g/dL (3.5-5.0); Alkaline Phosphatase 44 U/L (39-117); Anion Gap 10 (12-20); Aspartate Amino Transferase 27 U/L (5-31); Blood Urea Nitrogen 20 mg/dL (9-16); Calcium 9.2 mg/dL (8.4-10.2); Carbon Dioxide 28 mmol/L (22-29); Chloride 107 mmol/L (96-108); Cholesterol 195 mg/dL (<200); Estimated Glomerular Filt Rate > 60; HDL Cholesterol 81 mg/dL (>40); Potassium 3.9 mmol/L (3.3-5.1); Sodium 141 mmol/L (135-145); Total Protein 7.0 g/dL (6.5-8.0); Triglycerides 76 mg/dL (<150)
== END 2025-06-04 07:50 | disposition home or self-care (01) ==
LOC: HO.10HDL 07:49
PROVIDERS: Visit Provider Nurse Practitioner Family
DX: Z00.00 Encounter for general adult medical examination without abnormal findings (principal); Z13.6 Encounter for screening for cardiovascular disorders; Z13.0 Encounter for screening for diseases of the blood and blood-forming organs and certain disorders involving the immune mechanism
CPT/HCPCS: 36415; 80053; 80061; 81001; 81003; 82306; 84443; 85025; 87086

== ENCOUNTER 2025-07-13 08:09 | Outpatient (REF) | payer BC, SELFPAY ==
[2025-07-13 11:05] LABS: Appearance Urine Clear; Glucose Urine UA Negative (Negative); PH 6.0 (5.0-9.0); Specific Gravity - Urine 1.020 (1.005-1.025); UMIC TRIGGER UACC YES
[2025-07-13 11:30] LABS: Blood Urea Nitrogen 17 mg/dL (9-16); Estimated Glomerular Filt Rate > 60
== END 2025-07-13 08:10 | disposition home or self-care (01) ==
LOC: HO.10HDLNP 08:09
PROVIDERS: PCP Nurse Practitioner Family; Visit Provider Nurse Practitioner Family
DX: R31.29 Other microscopic hematuria (principal)
CPT/HCPCS: 81001; 81003; 82565; 84520; 87086; 88112

== ENCOUNTER 2025-07-22 10:16 | Outpatient (REF) | payer BC, SELFPAY ==
--- NOTE | ~2025-07-22 | CT_ITS ---
CLINICAL HISTORY: R31.29 - Other microscopic hematuria CT abdomen and pelvis without IV contrast. COMPARISON: None provided. FINDINGS: Partially visualized lung bases are unremarkable. Normal gallbladder. Visualized portions of the liver and spleen are unremarkable. Noncontrast appearance of the pancreas and adrenal glands are unremarkable. Left renal cystic lesion measuring 1.4 cm. No left-sided hydronephrosis or hydroureter. No left renal or ureteral calculus. No right-sided hydronephrosis. No right renal or ureteral calculus identified. Normal appendix. Mild colonic stool burden. No bowel obstruction. No mesenteric or retroperitoneal lymphadenopathy. Normal abdominal aorta. Normal appearance of the urinary bladder. No adnexal mass. Moderate spondylosis at L5-S1. No acute fracture or suspicious bone lesion. IMPRESSION: 1. No cause for patient's symptoms identified. No evidence of renal obstruction. No renal or ureteral calculus bilaterally. This document has been electronically signed by: Jesus Luther MD on 07/22/2025 19:13:34
[2025-07-22] MEDS: iohexoL 350 MG/ML 100 ML INFUS..BTL IV (11:06)
--- OUTSIDE RECORDS SUMMARY | 2025-07-22 12:37 | XMS_ITS | Encounter Summary ---
Author Organization [facility] Address [address] [facility] [address] [place] [address] Phone Care Team Providers Care Media Services Specialist Name Role Phone Delmi Gutierrez STRATEGIC CLIENT EXECUTIVE Unavailable Cecilia Torres NP Unavailable [phone] Tony Mansfield MD Unavailable [phone] MD Unavailable [phone] Axel Bland MD Unavailable Marcos Del Castillo NP Primary Care Provider + Encounter Details Date Type Department Care Team (Late st Contact Info) Description 04/15/2024 Procedure Pass [address] [place] [address] Social History Tobacco Use Types Packs/Day Years [...] Information Value Date Recorded Sex Assigned at Female 07/15/2025 1:01 PM EST Legal Sex Female 9:30 PM EDT Gender Identity Female 07/15/2025 1:01 PM EST Sexual Orientation Straight 07/15/2025 1: 01 PM EST documented as of this encounter Plan of Treatment Upcoming Encounters Date Type Department Care Team (Late st Contact Info) Description 07/22/2025 4:45 PM EST Hospital Encounter [facility], [facility] - [address] [place] [address] Marcos Cochran, DO [address] [place] [address] [email or web address] documented as of this encounter Visit Diagnoses Not on filedocumented in this encounter Care Teams Media Services Specialist Relationship Specialty Start Date End Date Marcos Del Castillo, STU [facility] [place] [address] PCP - General Family Medicine 01/15/22 Delmi Gutierrez NP [address] [place] [address] Historical LMR Provider 05/21/17 Cecilia Torres NP [address] [place] [address] Historical LMR Provider 05/21/17 Tony Mansfield MD [address] [place] [address] 7 [place] [address] [email or web address] Historical LMR Provider 05/21/17 Lane Walker MD [address] [place] [phone] Historical LMR Provider 05/21/17 Axel Bland MD [address] [place], [place] [address] [place] [address] [email or web address] Historical LMR Provider 05/21/17 documented as of this encounter Additional Source Comments The information contained in this document represents components of the legal health record. It is not the complete legal health record.[facility]
--- OUTSIDE RECORDS SUMMARY | 2025-07-22 12:37 | XMS_ITS | Clinical Summary ---
Author Organization [facility] Address [address] [facility] [address] [place] [address] Phone Care Team Providers Care Towel Stretcher Name Role Phone Delmi Gutierrez FUR DESIGNER Unavailable Cecilia Torres NP Unavailable [phone] Tony Mansfield MD Unavailable [phone] MD Unavailable Axel Bland MD Unavailable Marcos Del Castillo FUR DESIGNER Primary Care Provider + Allergies No known active allergies Medications damqbmbt-pwu-be rrous fumarate (MULTI VITAMIN) 9 mg iron/15 mL Liqd as directed Active b complex vitamins (VITAMINS B COMPLEX) tablet as directed Ac tive Encounters Date Type Department Care Team Description 07/22/2025 4:45 PM EST Hospital Encounter [address] [place] [address] Marcos Cochran DO 07/13/2025 Procedure Pass [address] [place] [address] 07/13/2025 Transcribe Orders Virtual Department [address] [place] [address] Marcos Cochran DO Vertebrogenic low back pain (Primary Dx) from Last 3 Months Social History Tobacco Use Types Packs/Day Years [...] Orientation Straight 07/15/2025 1: 01 PM EST Last Filed Vital Signs Vital Sign Reading [...] 05/23/2024 5:15 PM EDT Plan of Treatment Upcoming Encounters Date Type Department Care Team (Late st Contact Info) Description 07/22/2025 4:45 PM EST Hospital Encounter [facility], [address] [place] [address] Marcos Cochran, [address] [address] [email or web address] Maintenance Due Date Last Done Comments [...] 05/29/2019, Additional history exists COVID-19 VACCINE ( - 2024- season) 2025 09/02/2020, 08/12/2020 Adult Td,Tdap Booster [...] topic Medical Devices Not on file Insurance [facility] [place] [address] [address] [place] [address] [place] [address] [place] [address] [place] [address] [place] [address] [place] [address] [facility] Care Teams Towel Stretcher Relationship Specialty Start Date End Date Marcos Del Castillo NP [facility] [place] [address] PCP - General Family Medicine 01/15/22 Delmi Gutierrez NP [address] [place] [address] Historical LMR Provider 05/21/17 Cecilia Torres NP [address] [place] [address] Historical LMR Provider 05/21/17 Tony Mansfield MD [address] [place] [address] 7 [place] [address] [email or web address] Historical LMR Provider 05/21/17 Lane Walker MD [address] [place] [address] 7 [place] [address] Historical LMR Provider 05/21/17 Axel Bland MD [address] [place] [address] [address] [place] [phone] [email or web address] Historical LMR Provider 05/21/17 Additional Source Comments The information contained in this document represents components of the legal health record. It is not the complete legal health record.[facility]
--- OUTSIDE RECORDS SUMMARY | 2025-07-22 12:37 | XMS_ITS | Encounter Summary ---
Author Organization [facility] Address [address] [facility] [address] [place] [address] Phone Care Team Providers Care Slot Technician Name Role Phone Delmi Gutierrez RETAIL SALES CONSULTANT Unavailable Cecilia Torres NP Unavailable [phone] Tony Mansfield MD Unavailable [phone] MD Unavailable Axel Bland MD Unavailable Marcos Del Castillo NP Primary Care Provider + Encounter Details Date Type Department Care Team (Late st Contact Info) Description 07/13/2025 Procedure Pass [address] [place] [address] Social History Tobacco Use Types Packs/Day Years [...] Description 07/22/2025 4:45 PM EST Hospital Encounter [facility], [facility] - [address] [place] [address] Marcos Cochran, DO [address] [place] [address] [email or web address] documented as of this encounter Visit Diagnoses Not on filedocumented in this encounter Care Teams Slot Technician Relationship Specialty Start Date End Date Marcos Del Castillo, STU [facility] [place] [address] PCP - General Family Medicine 01/15/22 Delmi Gutierrez NP [address] [place] [address] Historical LMR Provider 05/21/17 Cecilia Torres NP [address] [place] [address] Historical LMR Provider 05/21/17 Tony Mansfield MD [address] [place] [address] 7 [place] [address] [email or web address] Historical LMR Provider 05/21/17 Lane Walker MD [address] [place] [phone] Historical LMR Provider 05/21/17 Axel Bland MD [address] [place], [place] [address] [place] [address] [email or web address] Historical LMR Provider 05/21/17 documented as of this encounter Additional Source Comments The information contained in this document represents components of the legal health record. It is not the complete legal health record.[facility]
--- OUTSIDE RECORDS SUMMARY | 2025-07-22 12:37 | XMS_ITS | Encounter Summary ---
Author Organization [facility] Address [address] [facility] [address] [place] [address] Phone Care Team Providers Care Hand Alterations Seamstress Name Role Phone Delmi Gutierrez DUMP MOTORMAN Unavailable [phone] Cecilia Torres NP Unavailable [phone] Tony Mansfield MD Unavailable [phone] MD Unavailable [phone] Axel Bland MD Unavailable Marcos Del Castillo DUMP MOTORMAN Primary Care Provider + Reason for Referral * MRI/CAT Scan - Closed Specialty Diagnoses / Procedures Referred By Contac t Referred To Contact Radiology Diagnoses Vertebrogenic low back pain Procedures MRI Lumbar Spine CHG MRI, LUMBAR SPINE CHG MRI, LUMBAR SPINE COMBO CHG MRI, LUMBAR SPINE CONTRAST Greg Her DO [address] [place] [phone] Phone: tel: fax: [email or web address] Referral ID Status Reason Start Date Expiration Date Visits Re quested Visits Authorized [id number] Closed 04/15/2024 06/13/2024 1 1 Encounter Details Date Type Department Care Team (Latest Contact Info) Description 04/15/2024 Transcribe Orders [facility] Department [address] [place] [address] Her Greg Oral, DO [address] [place] [address] [email or web address] Vertebrogenic low back pain (Primary Dx) Social [...] Description 07/22/2025 4:45 PM EST Hospital Encounter [facility], [address] [place] [address] Marcos Cochran, DO [address] [place] [address] [email or web address] documented as of this encounter Results * [...] clinician's provided indication for this examination in [facility]: Outside Radiology Order; low back pain TECHNIQUE: [...] clinician's provided indication for this examination in [facility]:Outside Radiology Order; low back pain TECHNIQUE: MRI [...] Mild foramina stenosis at L4-L5 and L5-S1. Greg Her DO IMG MR XSPECIALTY Final Resu lt documented in this encounter Visit Diagnoses Diagnosis Vertebrogenic low back pain- Primary Vertebrogenic low back pain documented in this encounter Care Teams Hand Alterations Seamstress Relationship Specialty Start Date End Date Marcos Del Castillo NP [facility] [place] [address] PCP - General Family Medicine 01/15/22 Delmi Gutierrez NP [address] [place] [address] Historical LMR Provider 05/21/17 Cecilia Torres NP [address] [place] [address] Historical LMR Provider 05/21/17 Tony Mansfield MD [address] [place] [address], [address] [place] [address] [email or web address] Historical LMR Provider 05/21/17 Lane Walker MD [address] [facility] [address] [place] [address] Historical LMR Provider 05/21/17 Axel Bland MD [address] [facility] [place] [address] [email or web address] Historical LMR Provider 05/21/17 documented as of this encounter Additional Source Comments The information contained in this document represents components of the legal health record. It is not the complete legal health record.[facility]
--- OUTSIDE RECORDS SUMMARY | 2025-07-22 16:45 | XMS_ITS | Encounter Summary ---
Author Organization [facility] Address [address] [facility] [address] [place] [id number] Phone Care Team Providers Care Electronic Gaming Device Supervisor Name Role Phone Delmi Gutierrez BRICK BAKER Unavailable [phone] Cecilia Torres NP Unavailable [phone] Tony Mansfield MD Unavailable [phone] MD Unavailable [phone] Axel Bland MD Unavailable Marcos Del Castillo BRICK BAKER Primary Care Provider + Reason for Visit * MRI/CAT Scan - Authorized Specialty Diagnoses / Procedures Referred By Contac t Referred To Contact Radiology Diagnoses Vertebrogenic low back pain Procedures MRI Lumbar Spine CHG MRI, LUMBAR SPINE CHG MRI, LUMBAR SPINE COMBO CHG MRI, LUMBAR SPINE CONTRAST Marcos Cochran DO [address] [place] [address] Phone: tel: fax: [email or web address] Referral ID Status Reason Start Date Expiration Date V isits Requested Visits Authorized [id number] Authorized 07/13/2025 08/12/2025 1 1 Encounter Details Date Type Department Care Team (Late st Contact Info) Description 07/22/2025 4:45 PM EST Hospital Encounter [facility], [facility] - [address] [place] [address] Marcos Cochran DO [address] [place] [address] [email or web address] Social History Tobacco Use Types Packs/Day Years [...] as of this encounter Plan of Treatment Scheduled Orders Name Type Priority Associated Diagnoses Orde r Schedule MRI Lumbar Spine Imaging Routine Vertebrogenic low back pain Expected: 07/13/2025, Expires: 07/13/2026 documented as of this encounter Visit Diagnoses Not on filedocumented in this encounter Care Teams Electronic Gaming Device Supervisor Relationship Specialty Start Date End Date Marcos Del Castillo NP [address] [place] [address] PCP - General Family Medicine 01/15/22 Delmi Gutierrez NP [address] [place] [address] Historical LMR Provider 05/21/17 Cecilia Torres NP [address] [place] [id number] Historical LMR Provider 05/21/17 Tony Mansfield MD [address] [place] [address] [address] [place] [address] [email or web address] Historical LMR Provider 05/21/17 Lane Walker MD [address] [place] [address] [address] [place] [id number] Historical LMR Provider 05/21/17 Axel Bland MD [address] [place] [address] [address] [place] [id number] [email or web address] Historical LMR Provider 05/21/17 documented as of this encounter Additional Source Comments The information contained in this document represents components of the legal health record. It is not the complete legal health record.[facility]
== END 2025-07-22 10:17 ==
LOC: HO.CT 10:16
PROVIDERS: PCP Nurse Practitioner Family; Visit Provider Nurse Practitioner Family
DX: R31.29 Other microscopic hematuria (principal)
CPT/HCPCS: 74178; Q9967

== ENCOUNTER → 2025-07-22 10:17 | Outpatient (BNV) | payer BC, SELFPAY | PROVIDERS: PCP Nurse Practitioner Family; Visit Provider Radiology Diagnostic Radiology | DX: R31.29 Other microscopic hematuria (principal) | CPT/HCPCS: 74178 ==